=== PATIENT | male | born 1940 | race Caucasian/White ===

== ENCOUNTER 2018-06-25 08:35 | Observation (INO) ==
--- NOTE | 2018-06-25 09:03 | Emergency Department Note ---
Disposition Clinical Impression: Generalized weakness, Frail elderly Hypertension Qualifiers: Hypertension type: essential hypertension Qualified Code(s): I10 - Essential (primary) hypertension Disposition: Admitted As Inpatient Condition: Fair Time of Disposition: 11:02 General Adult HPI - General Chief complaint: ED Weakness Stated complaint: Weakness, back pain Time Seen by Provider: 06/25/18 08:39 Source: patient, family Mode of arrival: EMS Limitations: no limitations Nursing Notes Reviewed: Yes Vital Signs Reviewed: Yes - History of Present Illness HPI Narrative: Mr Marcos is a 78yo male who is brought in via EMS. is at bedside and she gives most of the history. She states he hasn't seen a doctor in over 20yrs aside from going to see a surgeon for a skin cancer removal. She states that he has had weakness for a very long time but over the last week, his weakness has increased severly. He has been having trouble standing up out of his chair and has been having trouble walking around. reports he shuffles his feet when he walks and has had a tremor for about 4-5yrs. He has had urinary freqnecy increasing as well, although he doesn't have difficulty starting urine. He pees multiple times a night. reports that he is very slow to start and has a hard time moving around. Pt Subjective Complaint: weakness - Related Data Home Medications Medication Instructions Recorded Confirmed Naproxen [Naprosyn] 500 mg PO BID 06/25/18 06/25/18 Allergies Allergy/AdvReac Type Severity Reaction Status Date / Time No Known Allergies Allergy Verified 06/25/18 09:08 Constitutional: Denies: fever, chills Eyes: Reports: vision change Cardiovascular: Denies: chest pain, palpitations Respiratory: Denies: cough, dyspnea Gastrointestinal: Reports: constipation. Denies: abdominal pain, nausea, vomiting Genitourinary: Reports: urgency, frequency. Denies: dysuria, hematuria Musculoskeletal: Reports: back pain Integumentary: Denies: lesions Neurological: Reports: weakness. Denies: headache, numbness, paresthesias Endocrine: Reports: fatigue Hematological/Lymphatic: Denies: easy bleeding, easy bruising Physical Exam - General Limitations: no limitations General appearance: alert, in no apparent distress, other (sitting in bed quietly, not interested in conversation, at bedside) - Head Head exam: atraumatic, normocephalic, other (scar from skin cancer removal) - Eye Eye exam: Present: EOMI. Absent: scleral icterus - ENT ENT exam: mucous membranes moist - Neck Neck exam: Present: normal inspection, trachea midline - Chest Chest inspection: Present: normal inspection, symmetric chest wall rise - Respiratory Respiratory exam: Present: normal lung sounds bilaterally. Absent: respiratory distress, wheezes, accessory muscle use - Cardiovascular Cardiovascular exam: Present: regular rate, normal rhythm, +S1, +S2. Absent: rubs, gallop, clicks, JVD - Abdominal Exam Abdominal exam: Present: soft, Non-Tender. Absent: distention, guarding, rebound, rigidity - Extremities Exam Extremities exam: Present: normal inspection, normal capillary refill. Absent: tenderness, pedal edema, joint swelling, calf tenderness - Neurological Exam Neurological exam: Present: alert, oriented X3 - Expanded Neurological Exam Patient oriented to: Present: person, place Speech: Present: fluid speech Cranial nerves: EOM function (II, III, IV, ): Normal, facial sensation (V): Normal, facial palsy (VII): Normal, spinal accessory function (XI): Normal, tongue deviation (XII): Normal Cerebellar function: finger to nose: Abnormal Right, Abnormal Left Motor strength - LUE: 3/5 Motor strength - RUE: 3/5 - Psychiatric Psychiatric exam: Present: flat affect - Skin Skin exam: Present: warm, dry, intact Course Course Narrative: Patient is here for increasing weakness over the last week. states this has been going on for some time but has gotten significantly worse over the last few days. He has had a tremor for quite some time. He also shuffles his feet when he walks. Patient hasn't seen a doctor in 20yrs. Will rule out UTI but this is most likely symptoms of his Parkinsons. - Reevaluation(s) Reevaluation #1: Pt asked for some pain meds. Motrin ordered. Time: 09:30 Reevaluation #2: Patient informed of admission. Time: 11:03 - Consultations Consultation #1: Neurology consulted and call completed. Neuro will see pt once he gets to the floor. Time: 11:03 Vital Signs Temperature 97.5 F L 06/25/18 08:45 Pulse Rate 76 06/25/18 08:45 Respiratory Rate 18 06/25/18 08:45 Blood Pressure 169/97 06/25/18 08:45 O2 Sat by Pulse Oximetry 98 06/25/18 08:45 Temperature 97.5 F L 06/25/18 08:45 Pulse Rate 76 06/25/18 08:45 Respiratory Rate 18 06/25/18 08:45 Blood Pressure 169/97 06/25/18 08:45 O2 Sat by Pulse Oximetry 98 06/25/18 08:45 Medical Decision Making - MDM Narrative Medical decision making narrative: Pt is a 78yo male here for increasing weakness over the last week. Pt is hardly able to get up and walk, he is struggling to urinate and has been having tremor. reports shuffling gait and tremor. He hasn't seen a doctor in over 20 yrs. Workup including labs is negative to this point. CBC, BMP, UA, troponin are all negative. CT abd/pelvis and CXR negative for acute process. Head CT negative for acute process. [facility] accepted admission. Neurology consulted and call is placed. Chest X-Ray 06/25/18 09:24 IMPRESSION: No acute cardiopulmonary disease. D/ / 06/25/2018 10:33:58 Jj Gallagher MD / [facility] Interpreting Provider: Jj Gallagher MD Head CT 06/25/18 09:24 IMPRESSION: No acute intracranial abnormality. Sequela of chronic small vessel ischemic change. D/ / Jj Gallagher MD / Jj Gallagher MD Interpreting Provider: Jj Gallagher MD Abdomen/Pelvis CT 06/25/18 09:49 IMPRESSION: Study is significantly limited due to motion artifact. No CT evidence of acute intra-abdominal process. 4 cm probable right hepatic lobe cyst although incompletely evaluated given motion artifact and lack of IV contrast. Diffuse atherosclerotic disease. Enlargement of the prostate gland and seminal vesicles. D/ / Jd Mathis / Jd Mathis Interpreting Provider: Jd Mathis No acute abnormalities on CTs. Waiting on labs and admission. - Lab Data Lab results reviewed: Yes I reviewed the patient's lab results. Result diagrams: 06/25/18 09:47 06/25/18 09:47 Lab Results 06/25/18 06/25/18 06/25/18 Range/Units 09:05 09:47 09:47 WBC 8.1 (4.3-11.1) K/mcL RBC 4.65 (4.19-5.50) M/mcL Hgb 14.1 (12.9-16.9) g/dL Hct 42.2 (37.5-50.1) % MCV 90.8 (83.0-100.0) fL MCH 30.3 (28.0-33.3) pg MCHC 33.4 (31.6-35.5) g/dL RDW 12.9 (11.5-14.5) % Plt Count 263 (140-400) K/mcL MPV 9.4 (9.4-12.4) fL Immature Gran % 0.5 (0-4) % Seg Neutrophils % 51.0 % Lymphocytes % 32.1 % Monocytes % 11.0 % Eosinophils % 4.8 % Basophils % 0.6 % Neutrophils # 4.1 (1.6-8.9) K/mcL Lymphocytes # 2.6 (0.6-4.6) K/mcL Monocytes # 0.9 (0.0-1.3) K/mcL Eosinophils # 0.4 (0.0-0.6) K/mcL Basophils # 0.1 (0.0-0.2) K/mcL Sodium 141 (136-145) mEq/L Potassium 3.8 (3.5-5.1) mEq/L Chloride 105 (98-107) mEq/L Carbon Dioxide 25 (23-29) mEq/L BUN 24 H (8-23) mg/dL Creatinine 0.88 (0.70-1.30) mg/dL Est GFR ( Amer) > 60 (> 60) Est GFR (Non-Af Amer) > 60 (> 60) BUN/Creatinine Ratio 27 H (6-26) Glucose 95 (70-105) mg/dL Calculated Osmolality 296 (280-300) Calcium 9.9 (8.6-10.3) mg/dL Total Bilirubin 0.6 (0.3-1.0) mg/dL AST 17 (13-39) Units/L ALT 10 (7-52) Units/L Alkaline Phosphatase 48 (34-104) Units/L Troponin I < 0.03 (< 0.04) ng/mL Serum Total Protein 7.0 (6.4-8.9) g/dL Albumin 4.3 (3.5-5.7) g/dL Globulin 2.7 (2.4-3.5) g/dL Albumin/Globulin Ratio 1.6 (1.1-2.2) TSH 1.538 (0.340-5.600) mcIU/mL Urine Color Yellow (Yellow) Urine Clarity Clear (Clear) Urine pH 6.5 (5.0-8.0) pH Units Ur Specific [place] 1.011 (1.010-1.025) Urine Protein Negative (Neg-Trace) mg/dL Urine Glucose (UA) Normal (Normal) mg/dL Urine Ketones Negative (Negative) mg/dL Urine Blood Negative (Negative) Urine Nitrite Negative (Negative) Urine Bilirubin Negative (Negative) Urine Urobilinogen Normal (Normal) mg/dL Ur Leukocyte Esterase Negative (Negative) Ur Culture Indicated? NO (NO) - EKG Data EKG #1 EKG attestation: Yes I reviewed and interpreted this EKG. EKG shows normal: sinus rhythm Rate: normal Rhythm: NSR [place]/QRS: normal When compared to previous EKG there are: previous EKG unavailable Interpretation: no acute changes Attestation Statement - Attestation Attestation: This documentation is done with the assistance of Dragon dictation. Despite efforts made to ensure accuracy, there may be inaccuracies in antique repairer or spelling and typographical errors. I examined this patient and my medical decision-making was reviewed with the Resident Physician. I agree with the documented findings, disposition and treatment plan as described except to the extent set forth below. Patient seen and evaluated on arrival with EMS and Dr. Zuniga, I agree with her evaluation and management plan, supervise care the patient outstay. states patient has not seen a doctor in over 20 years except for having a melanoma surgery on his face about 5 years ago. Increasing difficulty with ambulation he appears to today to have Parkinson's but she says never had a diagnosis. She says she is not able to care for him at home. Patient is not really have any complaints at this time with Benadryl workup on him he will need admission and most likely social service involvement.
[2018-06-25 09:13] LABS: Bilirubin,Urine Negative (Negative); Blood,Urine Negative (Negative); Clarity,Urine Clear (Clear); Color,Urine Yellow (Yellow); Glucose,Urine (UA) Normal (Normal); Ketones,Urine Negative (Negative); Leukocyte Esterase,Urine Negative (Negative); Nitrite,Urine Negative (Negative); PH,Urine 6.5 pH Units (5.0-8.0); Protein,Urine Negative (Neg-Trace); Specific Gravity,Urine 1.011 (1.010-1.025); Urobilinogen,Urine Normal (Normal)
[2018-06-25] MEDS ORDERED: Ibuprofen 400 MG TABLET PO ONE (09:29)
[2018-06-25 09:57] LABS: Basophils # 0.1 K/mcL (0.0-0.2); Basophils % 0.6 %; Eosinophils # 0.4 K/mcL (0.0-0.6); Eosinophils % 4.8 %; Hematocrit 42.2 % (37.5-50.1); Hemoglobin 14.1 g/dL (12.9-16.9); Immature Granulocytes % 0.5 % (0-4); Lymphocytes # 2.6 K/mcL (0.6-4.6); Lymphocytes % 32.1 %; Mean Corpuscular HGB Conc 33.4 g/dL (31.6-35.5); Mean Corpuscular Hemoglobin 30.3 pg (28.0-33.3); Mean Corpuscular Volume 90.8 fL (83.0-100.0); Mean Platelet Volume 9.4 fL (9.4-12.4); Monocytes # 0.9 K/mcL (0.0-1.3); Neutrophils # 4.1 K/mcL (1.6-8.9); Platelet Count 263 K/mcL (140-400); Red Blood Count 4.65 M/mcL (4.19-5.50); Red Cell Distribution Width 12.9 % (11.5-14.5)
[2018-06-25 10:19] LABS: Alanine Aminotransferase 10 Units/L (7-52); Albumin 4.3 g/dL (3.5-5.7); Albumin/Globulin Ratio 1.6 (1.1-2.2); Alkaline Phosphatase 48 Units/L (34-104); Aspartate Amino Transferase 17 Units/L (13-39); BUN/Creatinine Ratio 27 (6-26); Bilirubin,Total 0.6 mg/dL (0.3-1.0); Blood Urea Nitrogen 24 mg/dL (8-23); Calcium 9.9 mg/dL (8.6-10.3); Carbon Dioxide 25 mEq/L (23-29); Chloride 105 mEq/L (98-107); Globulin 2.7 g/dL (2.4-3.5); Glucose 95 mg/dL (70-105); Osmolality,Calculated 296 (280-300); Potassium 3.8 mEq/L (3.5-5.1); Sodium 141 mEq/L (136-145); Troponin I < 0.03 ng/mL (< 0.04); eGFR For Non-African Americans > 60 (> 60)
[2018-06-25 10:32] LABS: Thyroid Stimulating Hormone 1.538 mcIU/mL (0.340-5.600)
[2018-06-25] MEDS ORDERED: Naloxone 0.4 MG/ML INJ IVP PRN (13:56)
--- NOTE | 2018-06-25 14:01 | Internal Med History&Physical ---
Date of Encounter: 06/25/18 Time of Encounter: 13:59 Internal Medicine - H&P: HPI Chief complaint: Increased weakness, stiffness and shuffling gait Admitted From: Home Plans for Post Hospital Care: Home History of present illness: Mr. Marcos is a 78 year old male with no significant PMH presented to [facility] 06/25/2018 with complaints of increased generalized weakness, tremors, shuffling gait and falls. He was placed in observation status for further workup and treatment. Information obtained from chart review, patient report and . Patient defers most questions to his . says patient has been showing symptoms of Parkinson's for the last 5 years or so but has not sought medical attention. Says patient has been more weak with increased falls over the last week or so. She also reports shuffling gait, upper extremity tremors and increased falls. Patient says he is able to walk but he feels like he gets stuck at times. He does complain of some bilateral flank pain on my exam. No fevers or chills. No chest pain or shortness of breath, no dysuria. He does report some urgency and frequency. Denied dysuria Past Med Surg Social Fam HX - Past Medical History Medical history: non-contributory, cancer Additional medical history: skin cancer, macular degeneration right eye. Psychiatric history: no psych history - Past Surgical History Surgical History: no surgical history - Social History Smoking Status: Never smoker Alcohol use: none Drug use: none Internal Medicine - H&P: Meds Naproxen [Naprosyn] 500 mg PO BID 06/25/18 [History] Allergy/AdvReac Type Severity Reaction Status Date / Time No Known Allergies Allergy Verified 06/25/18 09:08 All Systems PM: A 12-system review of systems was performed and is negative for pertinent findings except as documented above in the HPI. - Constitutional Constitutional: as per HPI - EENT Eyes: as per HPI Ears: as per HPI Nose, mouth and throat: as per HPI - Breasts Breasts: as per HPI - Cardiovascular Cardiovascular ROS IM: as per HPI - Respiratory Respiratory: as per HPI - Gastrointestinal Gastrointestinal: as per HPI - Genitourinary Genitourinary ROS male: as per HPI - Musculoskeletal Musculoskeletal ROS IM: as per HPI - Integumentary Integumentary IM: as per HPI - Neurological Neurological ROS: as per HPI - Psychiatric Psychiatric: as per HPI - Constitutional Vitals: Temp Pulse Resp BP Pulse Ox 98.0 F 78 16 169/88 98 06/25/18 13:31 06/25/18 13:31 06/25/18 13:31 06/25/18 13:31 06/25/18 13:31 General appearance: Present: A&O X 3, pleasant, no acute distress Exam: . - Head Head exam: Present: atraumatic, normocephalic - Eye Eye exam: Present: PERRL, conjuntiva pink, sclera anicteric Pupils: Present: PERRL - Neck Neck exam general surgery: Present: supple, trachea midline. Absent: lymphadenopathy - Respiratory Respiratory exam: Present: CTAB. Absent: accessory muscle use, rales, rhonchi, wheezes - Cardiovascular Cardiovascular exam: Present: RRR, +S1, +S2. Absent: diastolic murmur, gallop, rubs, systolic murmur - GI/Abdominal GI/Abdominal exam: Present: normal bowel sounds, soft, no peritoneal signs. Absent: distended, tenderness - Extremities Exam Extremities exam: Present: warm, radial pulses palpable and symmetrical. Absent: calf tenderness, cyanotic, pedal edema - Neurological Exam Neurological exam: Present: CN II-XII intact, oriented X3, no focal deficits. Absent: pronater drift, facial droop, speech deficit Additional comments: Generalized rigidity and whole-body stiffness. Fine tremors to bilateral hands noted - Skin Skin exam: Present: dry, intact Internal Med - H&P Results - Labs CBC & Chem 7: 06/25/18 09:47 06/25/18 09:47 Labs: Short CBC 06/25/18 Range/Units 09:47 WBC 8.1 (4.3-11.1) K/mcL Hgb 14.1 (12.9-16.9) g/dL Hct 42.2 (37.5-50.1) % Plt Count 263 (140-400) K/mcL Neutrophils # 4.1 (1.6-8.9) K/mcL BMP 06/25/18 09:47 Sodium 141 Potassium 3.8 Chloride 105 Carbon Dioxide 25 BUN 24 H Creatinine 0.88 Glucose 95 Calcium 9.9 Cardiac Enzymes 06/25/18 Range/Units 09:47 Troponin I < 0.03 (< 0.04) ng/mL Liver Function 06/25/18 Range/Units 09:47 Total Bilirubin 0.6 (0.3-1.0) mg/dL AST 17 (13-39) Units/L ALT 10 (7-52) Units/L Alkaline Phosphatase 48 (34-104) Units/L Albumin 4.3 (3.5-5.7) g/dL Urine 06/25/18 Range/Units 09:05 Urine Color Yellow (Yellow) Urine Clarity Clear (Clear) Urine pH 6.5 (5.0-8.0) pH Units Ur Specific [place] 1.011 (1.010-1.025) Urine Protein Negative (Neg-Trace) mg/dL Urine Glucose (UA) Normal (Normal) mg/dL - Impressions ITS Impressions Chest X-Ray 06/25/18 09:24 IMPRESSION: No acute cardiopulmonary disease. D/ / 06/25/2018 10:33:58 Jj Gallagher MD / [facility] Interpreting Provider: Jj Gallagher MD Head CT 06/25/18 09:24 IMPRESSION: No acute intracranial abnormality. Sequela of chronic small vessel ischemic change. D/ / 06/25/2018 11:17:59 Jj Gallagher MD / [facility] Interpreting Provider: Jj Gallagher MD Abdomen/Pelvis CT 06/25/18 09:49 IMPRESSION: Study is significantly limited due to motion artifact. No CT evidence of acute intra-abdominal process. 4 cm probable right hepatic lobe cyst although incompletely evaluated given motion artifact and lack of IV contrast. Diffuse atherosclerotic disease. Enlargement of the prostate gland and seminal vesicles. D/ / Jd Mathis / Jd Mathis Interpreting Provider: Jd Mathis - Assessment and plan (1) Generalized weakness Current Visit: Yes Status: Acute Assessment and plan: presented with increased generalized weakness with associated rigidity, tremors and shuffling gait. Concerning for Parkinson. Head CT nonacute. Neurology consult (2) BPH (benign prostatic hyperplasia) Current Visit: Yes Status: Acute Assessment and plan: Symptomatic with frequency and urgency. ABD CT with enlarged prostate. Start Flomax Qualifiers: Lower urinary tract symptom detail: urinary frequency Qualified Code(s): N40.1 - Benign prostatic hyperplasia with lower urinary tract symptoms; R35.0 - Frequency of micturition (3) Constipation Current Visit: Yes Status: Acute Assessment and plan: per patient reported hx. Start Miralax Qualifiers: Constipation type: unspecified constipation type Qualified Code(s): K59.00 - Constipation, unspecified (4) DVT prophylaxis Current Visit: Yes Status: Acute Assessment and plan: lovenox - Time Spent With Patient Total time spent is greater than 50% in coordination of care (as documented) at patient's floor/unit and/or counseling patient:
[2018-06-25] MEDS: traMADol 50 MG TABLET PO PRN (14:36)
[2018-06-25] MEDS: Nystatin POWDER 30 GM BOTTLE TP SCH ×2 (14:53→21:42)
[2018-06-25] MEDS: *HR* OxyCODONE Immed Rel 5 MG TABLET PO PRN ×2 (16:21→22:43)
--- NOTE | 2018-06-25 16:36 | Neurology - Consult Note ---
Date of Encounter: 06/25/18 Time of Encounter: 16:32 Assessment and Plan (1) Parkinson's disease Current Visit: Yes Status: Acute Patient does have the cardinal features of Parkinson's disease which include resting tremor, akinesia, rigidity, and postural instability. I will start him on carbidopa/levodopa 25/100. I recommend have one dose this evening and then start tomorrow morning with twice a day dosing. He also has back pain which I presume was more than likely due to mechanical factors however CT scan of the lumbar spine is pending. Further recommendations will be made pending the response to the carbidopa/levodopa. I anticipate he will need ongoing follow-up after discharge in my office as an outpatient. History of Present Illness HPI: Mr. Marcos is a 78 year old male who was seen for neurologic consultation at the request of the hospitalist secondary to suspicion of Parkinson's disease. Multiple family members are present during the assessment who helps to corroborate details. However I am referring Mr. Marcos began to experience symptoms of tremor of the right upper extremity as well as resting tremor of the left leg about 4 years or so ago. Over time the tremor has become more significant, and he has developed a slow shuffling gait. He had one fall several days or so ago. He denies headache denies confusion. Has any memory trouble. He does however complain of back pain is been evolving over recent times as well. He denies any paresthesias of the lower extremities. CT scan of the lumbar spine is yet pending. I did personally review the CAT scan of the brain which does reveal generalized atrophy. No evidence of acute infarct is present. No hemorrhagic process or neoplasm is present. No evidence of hydrocephalus present. Mr. Marcos admits that he is "not a Dr. person" which is why he has not gotten assessed and started on medication for this previously. His family is present they are very attentive and very pleasant. Past Med Surg Social Fam HX - Past Medical History Medical history: non-contributory, cancer Additional medical history: skin cancer, macular degeneration right eye. Psychiatric history: no psych history - Past Surgical History Surgical History: no surgical history - Social History Smoking Status: Never smoker Smokeless Tobacco Status: No Alcohol use: none Drug use: none - Family History Mother Adopted: No Medications and Allergies Naproxen [Naprosyn] 500 mg PO BID 06/25/18 [History] Allergy/AdvReac Type Severity Reaction Status Date / Time No Known Allergies Allergy Verified 06/25/18 09:08 All Systems: The remainder of the systems were reviewed and are negative Review of Systems: The balance of the systems review is negative. Physical Examination - Vital Signs Vital Signs: Initial Vital Signs Temp Pulse Resp BP Pulse Ox 97.5 F L 76 18 169/97 98 06/25/18 08:45 06/25/18 08:45 06/25/18 08:45 06/25/18 08:45 06/25/18 08:45 - Exam Exam: General Examination: *CONSTITUTIONAL: Very frail and bradykinetic. *GENERAL APPEARANCE OF PATIENT appears healthy and well groomed *EYES: pupils equal, round, reactive to light and accommodation, conjunctiva clear without masses or ulcerations, fundi normal. *CARDIOVASCULAR no peripheral edema, distal temperature normal, dorsalis pedis pulses normal. Refer to vital signs Musculoskeletal: *GAIT AND STATION slow shuffling gait with normal Romberg testing, he does have a stooping type posture. He has decreased arm swing bilaterally. He is unstable without assistance *ASSESSMENT OF MUSCLE STRENGTH IN THE UPPER AND LOWER EXTREMITIES deltoid, bicep, tricep, student worker strength, hip flexors ,anterior tibialis, dorsoflexion of the foot normal. *MUSCLE TONE IN THE UPPER AND LOWER EXTREMITIES normal. He does have resting tremor of the right upper extremity he does have decreased amplitude of repetitive alternating movements with the hands or with foot tapping. Neurological: *ORIENTATION to time and place *RECURRENT AND REMOTE MEMORY intact *ATTENTION AND CONCENTRATION are normal *LANGUAGE FUNCTION no significant aphasia or dysarthia was noted. *FUND OF KNOWLEDGE aware of current events, past history, vocabulary *MENTAL attention span and concentration normal. *CN II optic fundi were normal, no papilledema noted. *CN III,IV, PERRLA extraocular eye movements were full, no nystagmus and no ptosis noted. *CN V shows normal sensation and jaw opens symmetrically. *CN VII shows normal facial movement symmetrically, upper and lower bilaterally. *CN VIII shows no significant hearing loss on examination in the office. *CN IX,,X palate elevated symmetrically and normal gag reflex was noted. *CN XI normal strength in the sternocleidomastoid muscles, symmetrical shoulder shrugging. *CN XII tongue protruded in the midline, with normal strength and movement. *SENSORY EXAMINATION pinprick sensation intact, and light touch(vibration sense). *REFLEXES: deep tendon reflexes were normal and symmetrical , grade 2/4 diffusely, no pathological reflexes were noted. *CEREBELLAR TESTING normal finger to nose, heel/knee/guerra. *PAIN LEVEL 6-7/10 of the low back. Results - Laboratory Findings CBC and BMP: 06/25/18 09:47 06/25/18 09:47 Abnormal lab findings: Abnormal lab results BUN 24 mg/dL (8-23) H 06/25/18 09:47 BUN/Creatinine Ratio 27 (6-26) H 06/25/18 09:47 Consult Discharge Plan - Plan Referrals: Kiki To OYSTER PICKER [Primary Care Provider] -
[2018-06-25] MEDS: Carbidopa/Levodopa 25/100 TABLET PO SCH (17:53)
[2018-06-26] MEDS: traMADol 50 MG TABLET PO PRN ×2 (01:23→18:47)
[2018-06-26 04:20] LABS: Hematocrit 39.5 % (37.5-50.1); Hemoglobin 13.4 g/dL (12.9-16.9); Mean Corpuscular HGB Conc 33.9 g/dL (31.6-35.5); Mean Corpuscular Hemoglobin 30.7 pg (28.0-33.3); Mean Corpuscular Volume 90.6 fL (83.0-100.0); Mean Platelet Volume 9.8 fL (9.4-12.4); Platelet Count 260 K/mcL (140-400); Red Blood Count 4.36 M/mcL (4.19-5.50); Red Cell Distribution Width 13.1 % (11.5-14.5)
[2018-06-26 04:39] LABS: BUN/Creatinine Ratio 29 (6-26); Blood Urea Nitrogen 24 mg/dL (8-23); Calcium 9.5 mg/dL (8.6-10.3); Carbon Dioxide 25 mEq/L (23-29); Chloride 103 mEq/L (98-107); Glucose 123 mg/dL (70-105); Osmolality,Calculated 293 (280-300); Potassium 3.8 mEq/L (3.5-5.1); Sodium 139 mEq/L (136-145); eGFR For Non-African Americans > 60 (> 60)
[2018-06-26] MEDS: *HR* OxyCODONE Immed Rel 5 MG TABLET PO PRN ×4 (04:47→22:45)
[2018-06-26] MEDS: Carbidopa/Levodopa 25/100 TABLET PO SCH ×3 (08:24→21:10)
[2018-06-26] MEDS: Nystatin POWDER 30 GM BOTTLE TP SCH ×3 (08:25→21:10)
[2018-06-26] MEDS ORDERED: Ondansetron ODT 4 MG TAB.RAPDIS SL PRN (13:22)
--- NOTE | 2018-06-26 14:53 | Internal Med Progress Note ---
Hospitalist Progress Note - Encounter Date of Encounter: 06/26/18 Time of Encounter: 14:51 - Subjective Interval History: Seen and examined at bedside. He seems restless and somewhat agitated on exam. MOBILE NURSE at bedside and said patient has been up to the chair multiple times today. Patient is complaining of persistent lower back pain that radiates to his legs. No bladder or bowel incontinence. - Exam Vitals: Temp Pulse Resp BP Pulse Ox 97.8 F 93 16 125/67 99 06/26/18 11:42 06/26/18 11:42 06/26/18 11:42 06/26/18 11:42 06/26/18 11:42 Exam: - Head Head exam: Present: atraumatic, normocephalic - Eye Eye exam: Present: PERRL, conjuntiva pink, sclera anicteric Pupils: Present: PERRL - Neck Neck exam general surgery: Present: supple, trachea midline. Absent: lymphadenopathy - Respiratory Respiratory exam: Present: CTAB. Absent: accessory muscle use, rales, rhonchi, wheezes - Cardiovascular Cardiovascular exam: Present: RRR, +S1, +S2. Absent: diastolic murmur, gallop, rubs, systolic murmur - GI/Abdominal GI/Abdominal exam: Present: normal bowel sounds, soft, no peritoneal signs. Absent: distended, tenderness - Extremities Exam Extremities exam: Present: warm, radial pulses palpable and symmetrical. Absent: calf tenderness, cyanotic, pedal edema - Neurological Exam Neurological exam: Present: CN II-XII intact, oriented X3, no focal deficits. Absent: pronater drift, facial droop, speech deficit Additional comments: Generalized rigidity and whole-body stiffness. Fine tremors to bilateral hands noted - Assessment and Plan (1) Parkinson's disease Current Visit: Yes Status: Acute Assessment and Plan: new diagnosis. Presented with generalized weakness, rigidity and resting tremors. Evaluated by neurology who suspects Parkinson's disease. Carbidopa/levodopa started. Further recommendations will be made depending on the patient's response to carbidopa/levodopa. Neurology following. (2) Back pain Current Visit: Yes Status: Acute Assessment and Plan: sounds acute on chronic. Patient denied injury/trauma however patient's reports multiple recent falls. He is injury or trauma on exam. Lumbar x-ray unremarkable. Still with significant pain on 06/26 exam requiring increase in pain medication. Lumbar MRI pending. (3) BPH (benign prostatic hyperplasia) Current Visit: Yes Status: Acute Assessment and Plan: Symptomatic with frequency and urgency. ABD CT with enlarged prostate. Start Flomax (4) Constipation Current Visit: Yes Status: Acute Assessment and Plan: per patient reported hx. Start Miralax - Time Spent with Patient Total time spent is greater than 50% in coordination of care (as documented) at patient's floor/unit and/or counseling patient: Internal Medicine: Result - Labs CBC & Chem 7: 06/26/18 03:47 06/26/18 03:47 Labs: Short CBC 06/26/18 Range/Units 03:47 WBC 8.4 (4.3-11.1) K/mcL Hgb 13.4 (12.9-16.9) g/dL Hct 39.5 (37.5-50.1) % Plt Count 260 (140-400) K/mcL BMP 06/26/18 03:47 Sodium 139 Potassium 3.8 Chloride 103 Carbon Dioxide 25 BUN 24 H Creatinine 0.83 Glucose 123 H Calcium 9.5 - Impressions Impressions Lumbar Spine X-Ray 06/25/18 16:08 IMPRESSION: Mild multilevel degenerative changes without acute osseous abnormality. D/ / Alec Lanier MD / Alec Lanier MD Interpreting Provider: Alec Lanier MD Consult Discharge Plan - Plan Referrals: Kiki To, [employer] [Primary Care Provider] - (3) BPH (benign prostatic hyperplasia) Qualifiers: Lower urinary tract symptom detail: urinary frequency Qualified Code(s): N40.1 - Benign prostatic hyperplasia with lower urinary tract symptoms; R35.0 - Frequency of micturition (4) Constipation Qualifiers: Constipation type: unspecified constipation type Qualified Code(s): K59.00 - Constipation, unspecified
[2018-06-26] MEDS ORDERED: *HR* OxyCODONE Immed Rel 5 MG TABLET PO SCH (16:00)
[2018-06-26] MEDS ORDERED: OXYCODONE Oral CONC 10 MG/0.5 ML ORAL.SYG SL ONE (20:43)
[2018-06-27] MEDS: *HR* Enoxaparin 40 MG/0.4 ML SYRINGE SQ SCH (05:04)
[2018-06-27 05:41] LABS: Hematocrit 39.3 % (37.5-50.1); Hemoglobin 13.3 g/dL (12.9-16.9); Mean Corpuscular HGB Conc 33.8 g/dL (31.6-35.5); Mean Corpuscular Hemoglobin 30.3 pg (28.0-33.3); Mean Corpuscular Volume 89.5 fL (83.0-100.0); Mean Platelet Volume 10.1 fL (9.4-12.4); Platelet Count 281 K/mcL (140-400); Red Blood Count 4.39 M/mcL (4.19-5.50); Red Cell Distribution Width 12.9 % (11.5-14.5)
[2018-06-27 06:03] LABS: BUN/Creatinine Ratio 30 (6-26); Blood Urea Nitrogen 28 mg/dL (8-23); Calcium 10.1 mg/dL (8.6-10.3); Carbon Dioxide 20 mEq/L (23-29); Chloride 101 mEq/L (98-107); Glucose 104 mg/dL (70-105); Osmolality,Calculated 286 (280-300); Potassium 3.8 mEq/L (3.5-5.1); Sodium 135 mEq/L (136-145); eGFR For Non-African Americans > 60 (> 60)
[2018-06-27] MEDS: *HR* OxyCODONE Immed Rel 5 MG TABLET PO PRN (08:47)
[2018-06-27] MEDS: Carbidopa/Levodopa 25/100 TABLET PO SCH ×2 (08:47→15:58)
[2018-06-27] MEDS: Nystatin POWDER 30 GM BOTTLE TP SCH ×3 (08:48→19:58)
[2018-06-27] MEDS: traMADol 50 MG TABLET PO PRN ×2 (13:07→19:58)
--- NOTE | 2018-06-27 14:14 | Internal Med Progress Note ---
<Radhames Quiroga P - Last Filed: 06/27/18 14:21> Hospitalist Progress Note - Encounter Date of Encounter: 06/27/18 Time of Encounter: 13:00 - Subjective Interval History: 78 years old male presented to [facility] ED for increased weakness, shuffling gaits and tremors and falls. According to his he has symptoms for a few years b ut has not started any medication. Today during our bedside visit, he was sleeping. We could not talk with the patient and talked with his . The patient has resting tremors and improving a little bit since admission. His vitals are blood pressure 123/69, temperature 99 F, saturation 95%. We have consulted Neurologist today and we appreciate the recommendation. We are waiting MRI lumbar spine , we appreciate recommendation from PT and OT. The patient does not want to go to the group home facility, but wants to go home with regular follow-up with new primary care provider. We will discharge him in 1-2 days - Exam Vitals: Temp Pulse Resp BP Pulse Ox 99.0 F 95 18 123/69 95 06/27/18 10:57 06/27/18 10:57 06/27/18 10:57 06/27/18 10:57 06/27/18 10:57 Exam: - Head Head exam: Present: atraumatic, normocephalic - Eye Eye exam: Present: PERRL, conjuntiva pink, sclera anicteric Pupils: Present: PERRL - Neck Neck exam general surgery: Present: supple, trachea midline. Absent: lymphadenopathy - Respiratory Respiratory exam: Present: CTAB. Absent: accessory muscle use, rales, rhonchi, wheezes - Cardiovascular Cardiovascular exam: Present: RRR, +S1, +S2. Absent: diastolic murmur, gallop, rubs, systolic murmur - GI/Abdominal GI/Abdominal exam: Present: normal bowel sounds, soft, no peritoneal signs. Absent: distended, tenderness - Extremities Exam Extremities exam: Present: warm, radial pulses palpable and symmetrical. Absent: calf tenderness, cyanotic, pedal edema - Neurological Exam Neurological exam: Present: CN II-XII intact, oriented X3, no focal deficits. Absent: pronater drift, facial droop, speech deficit Additional comments: Generalized rigidity and whole-body stiffness. Fine tremors to bilateral hands noted - Assessment and Plan (1) Parkinson disease Current Visit: Yes Status: Acute Assessment and Plan: The patient has history of resting tremor, rigidity, postural instability. The patient is are suggestive of Parkinson disease. Neurology team has been consulted. They started carbidopa/levodopa 25/100 twice daily. We will monitor the symptoms . (2) Generalized weakness Current Visit: Yes Status: Acute Assessment and Plan: presented with increased generalized weakness with associated rigidity, tremors and shuffling gait. Head CT normal . Neurology consult (3) Low back pain Current Visit: Yes Status: Acute Assessment and Plan: Xray lumbar spine :Mild multilevel degenerative changes without acute osseous abnormality. We have consulted PT and OT, waiting MRI lumbar spine - Time Spent with Patient Total time spent is greater than 50% in coordination of care (as documented) at patient's floor/unit and/or counseling patient: Internal Medicine: Result - Labs CBC & Chem 7: 06/27/18 05:03 06/27/18 05:03 Labs: Short CBC 06/27/18 Range/Units 05:03 WBC 9.9 (4.3-11.1) K/mcL Hgb 13.3 (12.9-16.9) g/dL Hct 39.3 (37.5-50.1) % Plt Count 281 (140-400) K/mcL BMP 06/27/18 05:03 Sodium 135 L Potassium 3.8 Chloride 101 Carbon Dioxide 20 L BUN 28 H Creatinine 0.92 Glucose 104 Calcium 10.1 Consult Discharge Plan - Plan Referrals: Kiki To, [employer] [facility]PERATOR [Primary Care Provider] - (Appointment has been requested. Our offices will call you with an appointment time and date) <Mendez Ruby - Last Filed: 06/27/18 14:47> Hospitalist Progress Note - Encounter Date of Encounter: 06/27/18 - Exam Vitals: Temp Pulse Resp BP Pulse Ox 99.0 F 95 18 123/69 95 06/27/18 10:57 06/27/18 10:57 06/27/18 10:57 06/27/18 10:57 06/27/18 10:57 - Assessment and Plan (1) BPH (benign prostatic hyperplasia) Current Visit: Yes Status: Acute (2) Constipation Current Visit: Yes Status: Acute (3) Parkinson's disease Current Visit: Yes Status: Acute (4) Back pain Current Visit: Yes Status: Acute - Time Spent with Patient Total time spent is greater than 50% in coordination of care (as documented) at patient's floor/unit and/or counseling patient: Internal Medicine: Result - Labs CBC & Chem 7: 06/27/18 05:03 06/27/18 05:03 Labs: Short CBC 06/27/18 Range/Units 05:03 WBC 9.9 (4.3-11.1) K/mcL Hgb 13.3 (12.9-16.9) g/dL Hct 39.3 (37.5-50.1) % Plt Count 281 (140-400) K/mcL BMP 06/27/18 05:03 Sodium 135 L Potassium 3.8 Chloride 101 Carbon Dioxide 20 L BUN 28 H Creatinine 0.92 Glucose 104 Calcium 10.1 - Attending Attestation I have performed a face- to face examination of this patient and participated in formulation of raymundo components of Assessment and plan with the Resident. Briefly this is a 78-year-old male with a new diagnosis of Parkinson's disease who was just been started on Sinemet and now we are up to 3 times a day Sinemet dosing. Neurology is following for symptom improvement. Occupational therapy and physical therapy are recommending group home facility which is being refused by the family. We will at the very least need to set up home health care at the time of discharge. He also has acute on chronic back pain and MRI of his lower back is pending at this time. Examination is consistent with a flat facies and diffuse increased muscle tone and muscular rigidity consistent with Parkinson's. Rest of the assessment and plan as per resident documentation <Mendez Ruby - Last Filed: 06/27/18 14:47> (1) BPH (benign prostatic hyperplasia) Qualifiers: Lower urinary tract symptom detail: urinary frequency Qualified Code(s): N40.1 - Benign prostatic hyperplasia with lower urinary tract symptoms; R35.0 - Frequency of micturition (2) Constipation Qualifiers: Constipation type: unspecified constipation type Qualified Code(s): K59.00 - Constipation, unspecified
--- NOTE | 2018-06-27 17:41 | Neurology Progress Note ---
Date of Encounter: 06/27/18 Time of Encounter: 17:38 Assessment and Plan (1) Parkinson's disease Current Visit: Yes Status: Acute Idiopathic Parkinson's disease is increasingly difficult to manage in older individuals. Frequently they are not able to tolerate the carbidopa/levodopa and it causes agitation and confusion. Such is the case here. In addition his back pain is likely due to chronic lumbar radiculopathies which will not be amenable to surgery. He will likely need long-term therapy for pain management perhaps with injections or oral medication therapy. His intends to take him home and I am concerned that he will be increasingly difficult to manage. If he is ultimately not able to tolerate the Sinemet then his rigidity will p ersist and she will have a hard time with his daily care. The medication therapy may also cause him to be agitated and confused. However for now I will hold the Sinemet until his symptoms of confusion subside. I will consider restarting it at 1 pill daily to see whether he tolerates it. I will reevaluate him tomorrow. Subjective Interval history: The chart was reviewed, the patient was seen and examined. His is with him at the bedside. Patient is sleeping at the time. Apparently he has been confused and agitated since starting the Sinemet. This is an unfortunate side effect of this medication. 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 This is likely the cause of his back pain. Objective - Constitutional Vitals: Temp Pulse Resp BP Pulse Ox 98.5 F 113 16 156/79 97 06/27/18 16:14 06/27/18 16:14 06/27/18 16:14 06/27/18 16:14 06/27/18 16:14 - Neurological Exam Additional comments: There has been no change in my neurologic examination from my initial assessment. Results - Laboratory Findings CBC and BMP: 06/27/18 05:03 06/27/18 05:03 Abnormal lab findings: Abnormal lab results Sodium 135 mEq/L (136-145) L 06/27/18 05:03 Carbon Dioxide 20 mEq/L (23-29) L 06/27/18 05:03 BUN 28 mg/dL (8-23) H 06/27/18 05:03 BUN/Creatinine Ratio 30 (6-26) H 06/27/18 05:03 Consult Discharge Plan - Plan Referrals: Kiki To CNP [Primary Care Provider] - (Appointment has been requested. Our offices will call you with an appointment time and date)
[2018-06-27] MEDS ORDERED: Acetaminophen 325 MG TABLET PO ONE (22:30)
[2018-06-28] MEDS ORDERED: traMADol 50 MG TABLET PO ONE (00:45)
[2018-06-28] MEDS ORDERED: *HR* OxyCODONE Immed Rel 5 MG TABLET PO ONE ×2 (02:08→14:39)
--- NOTE | 2018-06-28 03:23 | Event Note ---
Date of Encounter: 06/28/18 Time of Encounter: 02:17 Notified by nurse of patient reporting chest pain that feels like muscle pain. Assessed patient at bedside. EKG sinus tachycardia, though there was significant artifact as staff unable to make patient lay still while obtaining EKG. Had similar episode on previous shift with EKG and troponin ordered. Will repeat 2 additional troponins.
[2018-06-28 04:32] LABS: Hematocrit 35.5 % (37.5-50.1); Hemoglobin 12.1 g/dL (12.9-16.9); Mean Corpuscular HGB Conc 34.1 g/dL (31.6-35.5); Mean Corpuscular Hemoglobin 30.6 pg (28.0-33.3); Mean Corpuscular Volume 89.6 fL (83.0-100.0); Platelet Count 256 K/mcL (140-400); Red Blood Count 3.96 M/mcL (4.19-5.50); Red Cell Distribution Width 13.2 % (11.5-14.5)
[2018-06-28 04:49] LABS: BUN/Creatinine Ratio 38 (6-26); Blood Urea Nitrogen 35 mg/dL (8-23); Calcium 9.4 mg/dL (8.6-10.3); Carbon Dioxide 24 mEq/L (23-29); Chloride 102 mEq/L (98-107); Glucose 101 mg/dL (70-105); Osmolality,Calculated 292 (280-300); Sodium 137 mEq/L (136-145); eGFR For Non-African Americans > 60 (> 60)
[2018-06-28] MEDS: *HR* Enoxaparin 40 MG/0.4 ML SYRINGE SQ SCH (04:56)
[2018-06-28] MEDS: traMADol 50 MG TABLET PO PRN ×2 (07:33→22:36)
[2018-06-28] MEDS: Ketorolac 30 MG/ML VIAL IVP SCH ×3 (09:50→18:23)
[2018-06-28] MEDS: Nystatin POWDER 30 GM BOTTLE TP SCH ×3 (10:44→22:04)
[2018-06-28] MEDS ORDERED: MOM Conc 10 ML UD.LIQ PO ONE (11:06)
--- NOTE | 2018-06-28 11:17 | Internal Med Progress Note ---
<Radhames Quiroga P - Last Filed: 06/28/18 12:59> Hospitalist Progress Note - Encounter Date of Encounter: 06/28/18 Time of Encounter: 09:30 - Subjective Interval History: Today is third day of admission .He is 78 years old male presented to [facility] ED for increased weakness, shuffling gaits and tremors and falls. According to his he has had symptoms for a few years but has not started any medication. During my bedside visit today, the patient was walking around with the help of walker, he stated that he could not sleep well yesterday and looks a little bit restless and try to walk around. His vitals are temperature 97.9, pulse 109 regular, blood pressure 148/81 . Recent labs : Sodium 137 , potassium 4.0 , creatinine 0.91, white cell count 8.0 , troponin 0.03 , urinalysis negative for infection.MRI report ;Multilevel degenerative changes of the lumbar spine, most prominent at L4-5, as detailed above. Orthopedic spine doctor has been consulted today. Neurologic team is on board. - Exam Vitals: Temp Pulse Resp BP Pulse Ox 97.9 F 109 16 148/81 97 06/28/18 06:52 06/28/18 06:52 06/28/18 06:52 06/28/18 06:52 06/28/18 06:52 Exam: - Head Head exam: Present: atraumatic, normocephalic - Eye Eye exam: Present: PERRL, conjuntiva pink, sclera anicteric Pupils: Present: PERRL - Neck Neck exam general surgery: Present: supple, trachea midline. Absent: lymphadenopathy - Respiratory Respiratory exam: Present: CTAB. Absent: accessory muscle use, rales, rhonchi, wheezes - Cardiovascular Cardiovascular exam: Present: RRR, +S1, +S2. Absent: diastolic murmur, gallop, rubs, systolic murmur - GI/Abdominal GI/Abdominal exam: Present: normal bowel sounds, soft, no peritoneal signs. Absent: distended, tenderness - Extremities Exam Extremities exam: Present: warm, radial pulses palpable and symmetrical. Absent: calf tenderness, cyanotic, pedal edema - Neurological Exam Neurological exam: Present: CN II-XII intact, oriented X2, no focal deficits. Absent: pronater drift, facial droop, speech deficit Additional comments: Lowback : tenderness at lower lumbar spine and paravertebral muscle. Generalized rigidity and whole-body stiffness. Fine resting tremors to marjorie ateral hands noted - Assessment and Plan (1) Parkinson disease Current Visit: Yes Status: Acute Assessment and Plan: The patient has history of resting tremor, rigidity, postural instability. The patient is are suggestive of Parkinson disease. Neurology team has been consulted. They started carbidopa/levodopa 25/100 twice daily, but patient could not tolerate the dose,so gradually increase the dose from 1tab OD as per neuro recommendation. We will monitor the symptoms . (2) Generalized weakness Current Visit: Yes Status: Acute Assessment and Plan: presented with increased generalized weakness with associated rigidity, tremors and shuffling gait. Head CT normal . MRI Lspine:Multilevel degenerative changes of the lumbar spine, most prominent at L4-5, as detailed above. We have consulted orthopedic doctor..PT and OT on board. (3) Low back pain Current Visit: Yes Status: Acute Assessment and Plan: He has low back pain with radiculopathy. MRI : L spine Multilevel degenerative changes of the lumbar spine, most prominent at L4-5, Ortho spine has been consulted . PT and OT on board , pain management continue . (4) DVT prophylaxis Current Visit: Yes Status: Acute Assessment and Plan: On lovenox 40 SQ - Time Spent with Patient Total time spent is greater than 50% in coordination of care (as documented) at patient's floor/unit and/or counseling patient: Internal Medicine: Result - Labs CBC & Chem 7: 06/28/18 03:33 06/28/18 03:33 Labs: Short CBC 06/28/18 Range/Units 03:33 WBC 8.0 (4.3-11.1) K/mcL Hgb 12.1 L (12.9-16.9) g/dL Hct 35.5 L (37.5-50.1) % Plt Count 256 (140-400) K/mcL BMP 06/28/18 03:33 Sodium 137 Potassium 4.0 Chloride 102 Carbon Dioxide 24 BUN 35 H Creatinine 0.91 Glucose 101 Calcium 9.4 Cardiac Enzymes 06/27/18 06/28/18 06/28/18 Range/Units 16:48 03:33 09:49 Troponin I 0.03 0.04 H* < 0.03 (< 0.04) ng/mL - Impressions Impressions Lumbar Spine MRI 06/26/18 14:55 IMPRESSION: 1. Multilevel degenerative changes of the lumbar spine, most prominent at L4-5, as detailed above. 2. Grade 1 retrolisthesis of L1 relative to L2. Presumed degenerative endplate edema at L1-L2 on the left. D/ / 06/27/2018 14:48:38 Ethan Xiao MD / abhijit Interpreting Provider: Ethan Xiao MD Consult Discharge Plan - Plan Referrals: Kiki To PACU RN [Primary Care Provider] - 07/04/18 8:30 am () <Mendez Ruby - Last Filed: 06/29/18 09:46> Hospitalist Progress Note - Encounter Date of Encounter: 06/29/18 - Exam Vitals: Temp Pulse Resp BP Pulse Ox 97.6 F 104 14 162/79 100 06/29/18 07:00 06/29/18 07:00 06/29/18 07:00 06/29/18 07:00 06/29/18 07:00 - Assessment and Plan (1) BPH (benign prostatic hyperplasia) Current Visit: Yes Status: Acute (2) Constipation Current Visit: Yes Status: Acute (3) Parkinson's disease Current Visit: Yes Status: Acute (4) Back pain Current Visit: Yes Status: Acute - Time Spent with Patient Total time spent is greater than 50% in coordination of care (as documented) at patient's floor/unit and/or counseling patient: Internal Medicine: Result - Labs CBC & Chem 7: 06/29/18 04:14 06/29/18 04:14 Labs: Short CBC 06/29/18 Range/Units 04:14 WBC 9.4 (4.3-11.1) K/mcL Hgb 13.3 (12.9-16.9) g/dL Hct 40.5 (37.5-50.1) % Plt Count 317 (140-400) K/mcL BMP 06/29/18 04:14 Sodium 136 Potassium 3.5 Chloride 98 Carbon Dioxide 24 BUN 58 H Creatinine 1.19 Glucose 116 H Calcium 10.4 H Cardiac Enzymes 06/28/18 Range/Units 09:49 Troponin I < 0.03 (< 0.04) ng/mL - Impressions Impressions Lumbar Spine MRI 06/26/18 14:55 IMPRESSION: 1. Multilevel degenerative changes of the lumbar spine, most prominent at L4-5, as detailed above. 2. Grade 1 retrolisthesis of L1 relative to L2. Presumed degenerative endplate edema at L1-L2 on the left. D/ / 06/27/2018 14:48:38 Ethan Xiao MD / abhijit Interpreting Provider: Ethan Xiao MD - Attending Attestation I have performed a face- to face examination of this patient and participated in formulation of raymundo components of Assessment and plan with the Resident. Events from last night reviewed. Patient had better evening last night after his Sinemet was held by neurology. There was also concern for ST changes on telemetry monitoring. Cardiac enzymes were checked and they were normal although last one was barely elevated at 0.04. Patient has been denying any chest pain or chest pressure-type of symptoms. He is not short of breath. This morning he is much more awake and alert and seen ambulating in the toro with the a walker. He still complains of a lot of pain in the lower back region. His MRI has been reviewed and shows severe L4-L5 degenerative disc disease including central disc protrusion. I have started him on Toradol cautiously keeping his renal function in mind. Physical therapy will continue to see him. We will also consult orthopedics for intervention although I doubt he would be a candidate for surgical intervention at this point. On examination his gait is shuffling, he does have increased muscle tone diffusely which is suggestive of Parkinson's. Appreciate neurology consultation and follow-up regarding holding his Sinemet due to intolerance of symptoms especially with agitation at nighttime. Neurology is planning on reevaluating him today and considering restarting Sinemet at the lowest dose possible. Rest of the assessment and plan as per resident documentation from today's progress note <Mendez Ruby G - Last Filed: 06/29/18 09:46> (1) BPH (benign prostatic hyperplasia) Qualifiers: Lower urinary tract symptom detail: urinary frequency Qualified Code(s): N40.1 - Benign prostatic hyperplasia with lower urinary tract symptoms; R35.0 - Frequency of micturition (2) Constipation Qualifiers: Constipation type: unspecified constipation type Qualified Code(s): K59.00 - Constipation, unspecified
--- NOTE | 2018-06-28 11:46 | Event Note ---
Date of Encounter: 06/28/18 Time of Encounter: 11:43 I have performed a face- to face examination of this patient and participated in formulation of raymundo components of Assessment and plan with the Resident. Events from last night reviewed. Patient had better evening last night after his Sinemet was held by neurology. There was also concern for ST changes on telemetry monitoring. Cardiac enzymes were checked and they were normal although last one was barely elevated at 0.04. Patient has been denying any chest pain or chest pressure-type of symptoms. He is not short of breath. This morning he is much more awake and alert and seen ambulating in the toro with the a walker. He still complains of a lot of pain in the lower back region. His MRI has been reviewed and shows severe L4-L5 degenerative disc disease including central disc protrusion. I have started him on Toradol cautiously keeping his renal function in mind. Physical therapy will continue to see him. We will also consult orthopedics for intervention although I doubt he would be a candidate for surgical intervention at this point. On examination his gait is shuffling, he does have increased muscle tone diffusely which is suggestive of Parkinson's. Appreciate neurology consultation and follow-up regarding holding his Sinemet due to intolerance of symptoms especially with agitation at nighttime. Neurology is planning on reevaluating him today and considering restarting Sinemet at the lowest dose possible. Rest of the assessment and plan as per resident documentation from today's progress note
--- NOTE | 2018-06-28 12:54 | Neurology Progress Note ---
Date of Encounter: 06/28/18 Time of Encounter: 12:52 Assessment and Plan (1) Parkinson's disease Current Visit: Yes Status: Acute I remain convinced that we are dealing with idiopathic Parkinson's disease. As stated previously however the dopaminergic medications are more difficult to tolerate in the elderly. I would therefore restart the Sinemet at one pill once daily. I believe that time for now we should focus on the back pain and get this under control. Once his back pain is improved and I can slowly titrate up on the Sinemet to effective dosing. We would recommend likely have to continue on with the titration as an outpatient after he is discharged. Subjective Interval history: The chart was reviewed, the patient was seen and examined. Patient's is in the room at bedside. Patient is sitting up at the side of the bed in no acute distress. He is back to his normal baseline status. He did not tolerate the 3 times a day dosing of Sinemet well. He still having trouble with excessive back pain. Objective - Constitutional Vitals: Temp Pulse Resp BP Pulse Ox 97.9 F 109 17 152/89 97 06/28/18 10:00 06/28/18 10:00 06/28/18 10:00 06/28/18 10:06/28/18 10:00 - Neurological Exam Additional comments: Exam: General Examination: *CONSTITUTIONAL: normal *GENERAL APPEARANCE OF PATIENT appears healthy and well groomed *EYES: pupils equal, round, reactive to light and accommodation, conjunctiva clear without masses or ulcerations, fundi normal. *CARDIOVASCULAR no peripheral edema, distal temperature normal, dorsalis pedis pulses normal. Refer to vital signs Musculoskeletal: *GAIT AND STATION WERE not assessed. *ASSESSMENT OF MUSCLE STRENGTH IN THE UPPER AND LOWER EXTREMITIES he has significant weakness of all muscles of the left upper and left lower extremity. However he has normal tone of the left upper and left lower extremities. He has normal strength bulk and tone of the right upper and right lower extremities. *MUSCLE TONE IN THE UPPER AND LOWER EXTREMITIES normal. No abnormal movements, fasciculations or atrophy identified. Neurological: *ORIENTATION to time and place *RECURRENT AND REMOTE MEMORY intact *ATTENTION AND CONCENTRATION seem to be somewhat impaired perhaps medication or other substances. *LANGUAGE FUNCTION no significant aphasia or dysarthia was noted. *FUND OF KNOWLEDGE she is not able to give a good history of her prior medical problems. Cannot tell me specifically details about diagnosed with seiz ures and who started her on seizure medication. *MENTAL attention span and concentration normal. *CN II optic fundi were normal, no papilledema noted. *CN III,IV, PERRLA extraocular eye movements were full, no nystagmus and no ptosis noted. *CN V shows normal sensation and jaw opens symmetrically. *CN VII shows normal facial movement symmetrically, upper and lower bilaterally. *CN VIII shows no significant hearing loss on examination in the office. *CN IX,,X palate elevated symmetrically and normal gag reflex was noted. *CN XI normal strength in the sternocleidomastoid muscles, symmetrical shoulder shrugging. *CN XII tongue protruded in the midline, with normal strength and movement. *SENSORY EXAMINATION pinprick sensation intact, and light touch(vibration sense). *REFLEXES: deep tendon reflexes were normal and symmetrical , grade 2/4 diffusely, no pathological reflexes were noted. *CEREBELLAR TESTING normal finger to nose, heel/knee/guerra, and tandem walk. *PAIN LEVEL -he does complain of left shoulder pain. Results - Laboratory Findings CBC and BMP: 06/28/18 03:33 06/28/18 03:33 Abnormal lab findings: Abnormal lab results RBC 3.96 M/mcL (4.19-5.50) L 06/28/18 03:33 Hgb 12.1 g/dL (12.9-16.9) L 06/28/18 03:33 Hct 35.5 % (37.5-50.1) L 06/28/18 03:33 BUN 35 mg/dL (8-23) H 06/28/18 03:33 BUN/Creatinine Ratio 38 (6-26) H 06/28/18 03:33 Consult Discharge Plan - Plan Referrals: Kiki To, WORK CHECKER [Primary Care Provider] - 07/04/18 8:30 am ()
[2018-06-28] MEDS: Carbidopa/Levodopa 25/100 TABLET PO SCH (14:26)
--- NOTE | 2018-06-28 21:39 | Spinal Consult Note ---
Date of Encounter: 06/28/18 Time of Encounter: 21:37 Assessment and Plan (1) Foraminal stenosis of lumbar region Current Visit: Yes Status: Chronic On exam he is sitting in a chair and appears in moderate distress secondary to back pain. Afebrile vital signs stable. He has a right arm, hand tremor. He is able to fire all lower extremity motor groups. He has no clonus. His hips move symmetrically. MRI of the lumbar spine reveals multilevel degenerative changes. There is moderate foraminal stenosis at L4-5 and L5-S1. Impression:1) foraminal stenosis lumbar region 2) lumbar radiculopathy Plan: The patient does not require surgical intervention. As would suggest he follow-up with interventional pain management on an outpatient basis for consideration of lumbar epidural steroid injections and other interventional pain treatment options. He may also benefit from outpatient physical therapy. He should follow-up with Dr. Burt or Dr. Bauer shortly after discharge. He may benefit from inpatient rehabilitation depending on findings of physical therapy consultation. There are no contraindications to his mobilization. (2) Lumbar radiculopathy Current Visit: Yes Status: Chronic History of Present Illness Chief complaint: Back pain, generalized weakness HPI: Mr. Marcos is a 78 year old male Who was admitted several days ago with generalized weakness and back pain. The patient has multiple comorbidities including Parkinson's disease. He is a poor historian and his is not present during this examination. He denies new weakness, states he can ambulate. He rates his back pain a 10 on a pain scale. He says he is having some sleeplessness secondary to pain. He says the pain is about 50% related to the back and 50% related to the bilateral lower extremities. He denies bowel bladder symptomatology. He denies fevers or chills. Past Med Surg Social Fam HX - Past Medical History Medical history: non-contributory, cancer Additional medical history: skin cancer, macular degeneration right eye. Psychiatric history: no psych history - Past Surgical History Surgical History: no surgical history - Social History Smoking Status: Never smoker Smokeless Tobacco Status: No Alcohol use: none Drug use: none - Family History Mother Adopted: No Medications and Allergies Naproxen [Naprosyn] 500 mg PO BID 06/25/18 [History] Allergy/AdvReac Type Severity Reaction Status Date / Time No Known Allergies Allergy Verified 06/25/18 09:08 Results - Labs Result Diagrams: 06/28/18 03:33 06/28/18 03:33 Labs: Abnormal lab results RBC 3.96 M/mcL (4.19-5.50) L 06/28/18 03:33 Hgb 12.1 g/dL (12.9-16.9) L 06/28/18 03:33 Hct 35.5 % (37.5-50.1) L 06/28/18 03:33 BUN 35 mg/dL (8-23) H 06/28/18 03:33 BUN/Creatinine Ratio 38 (6-26) H 06/28/18 03:33 H & H 06/28/18 Range/Units 03:33 Hgb 12.1 L (12.9-16.9) g/dL Hct 35.5 L (37.5-50.1) % All other labs normal. Consult Discharge Plan - Plan Referrals: Kiki To CNP [Primary Care Provider] - 07/04/18 8:30 am ()
[2018-06-29] MEDS: Ketorolac 30 MG/ML VIAL IVP SCH (00:57)
[2018-06-29 05:41] LABS: Hematocrit 40.5 % (37.5-50.1); Hemoglobin 13.3 g/dL (12.9-16.9); Mean Corpuscular HGB Conc 32.8 g/dL (31.6-35.5); Mean Corpuscular Hemoglobin 30.3 pg (28.0-33.3); Mean Corpuscular Volume 92.3 fL (83.0-100.0); Mean Platelet Volume 10.5 fL (9.4-12.4); Platelet Count 317 K/mcL (140-400); Red Blood Count 4.39 M/mcL (4.19-5.50); Red Cell Distribution Width 13.2 % (11.5-14.5)
[2018-06-29] MEDS: *HR* Enoxaparin 40 MG/0.4 ML SYRINGE SQ SCH (05:41)
[2018-06-29] MEDS: traMADol 50 MG TABLET PO PRN (05:41)
[2018-06-29 06:05] LABS: BUN/Creatinine Ratio 49 (6-26); Blood Urea Nitrogen 58 mg/dL (8-23); Calcium 10.4 mg/dL (8.6-10.3); Carbon Dioxide 24 mEq/L (23-29); Chloride 98 mEq/L (98-107); Glucose 116 mg/dL (70-105); Osmolality,Calculated 299 (280-300); Potassium 3.5 mEq/L (3.5-5.1); Sodium 136 mEq/L (136-145); eGFR For Non-African Americans 59 (> 60)
[2018-06-29 07:55] VITALS: BP 162/79
--- NOTE | 2018-06-29 09:18 | Electrocardiograph Report ---
[address] [place], [place] [address] Test Date: 2018-06-25 Pat Name: Anastacio Marcos Department: EXAM19 Room: 3B Gender: M Administrative Director: : 1940 Requested By: Kenneth Zuniga Order Number: [id number] Reading MD: Phong Clark Measurements Intervals [place] Rate: 78 P: 41 [place]: 136 QRS: 48 QRSD: 99 T: 61 QT: 398 QTc: 454 Interpretive Statements Sinus rhythm Electronically Signed On 06-29-2018 9:17:24 EST by Phong Clark
--- NOTE | 2018-06-29 09:28 | Internal Med Progress Note ---
<Radhames Quiroga P - Last Filed: 06/29/18 09:23> Hospitalist Progress Note - Encounter Date of Encounter: 06/29/18 - Subjective Interval History: Today is 4th day of admission .He is 78 years old male presented to [facility] for increased weakness,low back pain, shuffling gaits and tremors and falls. According to his he has had symptoms for a few years but has not started any medication. She was admitted for further workup. Today during my bedside visit the patient was sleeping on bed, he was not in acute distress. He has trouble with sleeping last night, he seems restless and try to walk, he complained about low back pain and radiating down both legs, he he got IV tramadol for pain are this morning, so he looks sleepy while I was in his bedside. I talked with sitter/ nurse as well. His vitals are blood pressure 154/88, pulse 107, saturation 97%. Orthopedic consultation was done yesterday. PT and OT evaluation is on board today. - Exam Vitals: Temp Pulse Resp BP Pulse Ox 97.6 F 104 14 162/79 100 06/29/18 07:00 06/29/18 07:00 06/29/18 07:00 06/29/18 07:00 06/29/18 07:00 Exam: General : Patient was sleepy but not in acute distress, oriented x2 - Head Head exam: Present: atraumatic, normocephalic - Eye Eye exam: Present: PERRL, conjuntiva pink, sclera anicteric Pupils: Present: PERRL - Neck Neck exam general surgery: Present: supple, trachea midline. Absent: ly mphadenopathy - Respiratory Respiratory exam: Present: CTAB. Absent: accessory muscle use, rales, rhonchi, wheezes - Cardiovascular Cardiovascular exam: Present: RRR, +S1, +S2. Absent: diastolic murmur, gallop, rubs, systolic murmur - GI/Abdominal GI/Abdominal exam: Present: normal bowel sounds, soft, no peritoneal signs. Absent: distended, tenderness - Extremities Exam Extremities exam: Present: warm, radial pulses palpable and symmetrical. Absent: calf tenderness, cyanotic, pedal edema - Neurological Exam Neurological exam: Present: CN II-XII intact, oriented X2, no focal deficits. Absent: pronater drift, facial droop, speech deficit Additional comments: Lowback : tenderness at lower lumbar spine and paravertebral muscle. Generalized rigidity and whole-body stiffness. Fine resting tremors to bilateral hands noted - Assessment and Plan (1) Parkinson disease Current Visit: Yes Status: Acute Assessment and Plan: The patient has history of resting tremor, rigidity, postural instability. The symptoms are suggestive of Parkinson disease. Neurology team has been consulted. They started carbidopa/levodopa 25/100 twice daily, but patient could not tolerate the higher dose,so gradually increasing the dose from 1 tab OD as per neuro recommendation. The patient is restless and symptoms of packed Parkinson has not yet been control well, is he is not tolerating usual dose of medication, as to start from the low-dose and will take time for improvement. We will monitor the symptoms . (2) Low back pain Current Visit: Yes Status: Acute Assessment and Plan: He has low back pain with radiculopathy. MRI : L spine Multilevel degenerative changes of the lumbar spine, most prominent at L4-5, Ortho spine has been consulted . They recommended epidural steroid injection, pain management, physical therapy . They will follow-up in outpatient . PT and OT on board , pain management continue . (3) Generalized weakness Current Visit: Yes Status: Acute Assessment and Plan: presented with increased generalized weakness with associated rigidity, tremors and shuffling gait and low back pain. Head CT was normal . MRI L- spine:Multilevel degenerative changes of the lumbar spine, most prominent at L4- 5. Ortho-spine consulted the patient and advised epidural steroid injection and physical therapy with pain management. PT /OT consultation is on board. (4) DVT prophylaxis Current Visit: Yes Status: Acute Assessment and Plan: Lovenox 40 SQ for DVT prophylaxis. - Time Spent with Patient Total time spent is greater than 50% in coordination of care (as documented) at patient's floor/unit and/or counseling patient: Internal Medicine: Result - Labs CBC & Chem 7: 06/29/18 04:14 06/29/18 04:14 Labs: Short CBC 06/29/18 Range/Units 04:14 WBC 9.4 (4.3-11.1) K/mcL Hgb 13.3 (12.9-16.9) g/dL Hct 40.5 (37.5-50.1) % Plt Count 317 (140-400) K/mcL BMP 06/29/18 04:14 Sodium 136 Potassium 3.5 Chloride 98 Carbon Dioxide 24 BUN 58 H Creatinine 1.19 Glucose 116 H Calcium 10.4 H Cardiac Enzymes 06/28/18 Range/Units 09:49 Troponin I < 0.03 (< 0.04) ng/mL - Impressions Impressions Lumbar Spine MRI 06/26/18 14:55 IMPRESSION: 1. Multilevel degenerative changes of the lumbar spine, most prominent at L4-5, as detailed above. 2. Grade 1 retrolisthesis of L1 relative to L2. Presumed degenerative endplate edema at L1-L2 on the left. D/ / 06/27/2018 14:48:38 Ethan Xiao MD / [email or web address] Interpreting Provider: Ethan Xiao MD Consult Discharge Plan - Plan Referrals: Kiki To CNP [Primary Care Provider] - 07/04/18 8:30 am () Micky Parker Jr, MD [Partnered Physician] - (An appointment has been requested. The office will contact you at home to schedule an appointment. ) Cody Burt DO [Partnered Physician] - 07/21/18 1:30 pm Rick Chou DO [Partnered Physician] - (An appointment has been requested. The office will contact you at home with an appointment. ) Prescriptions: OxyCODONE Immed Rel [Roxicodone 5 MG] 5 mg PO Q8HR PRN 5 Days #10 tablet PRN Reason: Severe Pain Carbidopa/Levodopa 25/100 [Sinemet 25/100] 1 each PO DAILY #30 tablet Lidocaine Patch [Lidoderm 5% patch] 1 each TP DAILY 5 Days #5 adh..patch Tamsulosin [Flomax] 0.4 mg PO DAILY #30 capsule <Mendez Ruby - Last Filed: 06/29/18 11:45> Hospitalist Progress Note - Encounter Date of Encounter: 06/29/18 Time of Encounter: 11:44 - Exam Vitals: Temp Pulse Resp BP Pulse Ox 97.6 F 104 14 162/79 100 06/29/18 07:00 06/29/18 07:00 06/29/18 07:00 06/29/18 07:00 06/29/18 07:00 - Assessment and Plan (1) BPH (benign prostatic hyperplasia) Current Visit: Yes Status: Acute (2) Constipation Current Visit: Yes Status: Acute (3) Parkinson's disease Current Visit: Yes Status: Acute (4) Back pain Current Visit: Yes Status: Acute - Time Spent with Patient Total time spent is greater than 50% in coordination of care (as documented) at patient's floor/unit and/or counseling patient: Internal Medicine: Result - Labs CBC & Chem 7: 06/29/18 04:14 06/29/18 04:14 Labs: Short CBC 06/29/18 Range/Units 04:14 WBC 9.4 (4.3-11.1) K/mcL Hgb 13.3 (12.9-16.9) g/dL Hct 40.5 (37.5-50.1) % Plt Count 317 (140-400) K/mcL BMP 06/29/18 04:14 Sodium 136 Potassium 3.5 Chloride 98 Carbon Dioxide 24 BUN 58 H Creatinine 1.19 Glucose 116 H Calcium 10.4 H - Attending Attestation A patient seen and examined at the bedside with the resident physician. Please refer to the discharge summary from today patient is being discharged. <Mendez Ruby - Last Filed: 06/29/18 11:45> (1) BPH (benign prostatic hyperplasia) Qualifiers: Lower urinary tract symptom detail: urinary frequency Qualified Code(s): N40.1 - Benign prostatic hyperplasia with lower urinary tract symptoms; R35.0 - Frequency of micturition (2) Constipation Qualifiers: Constipation type: unspecified constipation type Qualified Code(s): K59.00 - Constipation, unspecified
[2018-06-29] MEDS: Carbidopa/Levodopa 25/100 TABLET PO SCH (09:48)
[2018-06-29] MEDS: Nystatin POWDER 30 GM BOTTLE TP SCH (10:01)
--- NOTE | 2018-06-29 10:50 | Discharge Summary ---
<Radhames Quiroga P - Last Filed: 06/29/18 12:27> - NOTES TO OUTPATIENT PROVIDER Notes to Outpatient Provider: .*The patient was follow-up with his primary care provider within a week. *The patient will follow-up with neurologist(DR Richter) within a week. * He will take Sinemet 1 tab daily for now and Dr Richter will adjust the dose after out patient visit. *He will follow-up with Ortho spine doctor within 2-3 weeks. *follow-up with Dr. Burt within a week for pain management for low back pain. Orders not resulted at time of discharge: Pending orders 06/30/18 04:00 BMP [Basic Metabolic Panel] AM 0400 Complete Blood Count w/o Diff [HEME] AM 0400 07/01/18 04:00 BMP [Basic Metabolic Panel] AM 0400 Complete Blood Count w/o Diff [HEME] AM 0400 Date of Encounter: 06/29/18 Time of Encounter: 09:00 - Discharge Diagnosis (1) Parkinson disease Priority: Primary Status: Acute Assessment and Plan: The patient has history of resting tremor, rigidity, postural instability. The symptoms are suggestive of Parkinson disease. Neurology team has been consulted. They started carbidopa/levodopa 25/100 twice daily, but patient could not tolerate the higher dose,so gradually increasing the dose from 1 tab OD as per neuro recommendation. The patient is restless and symptoms of packed Parkinson has not yet been control well, is he is not tolerating usual dose of medication, as to start from the low-dose and will take time for improvement. He will follow-up with neurologist within a week. (2) Low back pain Priority: Primary Status: Chronic Assessment and Plan: presented with increased generalized weakness with associated rigidity, tremors and shuffling gait and low back pain. Head CT was normal . MRI L- spine:Multilevel degenerative changes of the lumbar spine, most prominent at L4- 5. Ortho-spine consulted the patient while she was in inpatient and advised epidural steroid injection and physical therapy with pain management. The patient will follow-up with Dr. Burt for pain management and orthopedic spine doctor for further outpatient evaluation and workup. Qualifiers: Chronicity: chronic Back pain laterality: bilateral Sciatica presence: with sciatica Sciatica laterality: sciatica laterality unspecified Qualified Code(s): M54.40 - Lumbago with sciatica, unspecified side; G89.29 - Other chronic pain (3) Generalized weakness Priority: Primary Status: Chronic (4) DVT prophylaxis Priority: Primary Status: Resolved Hospital course: .He is 78 years old male presented to [facility] ED for increased weakness,low back pain, shuffling gaits and tremors and falls. According to his he has had those symptoms for a few years but has not started any medication. He was admitted for further workup. We consulted Ortho spine doctor , Neurologist while he was in in patient . MRI : L spine showed : Multilevel degenerative changes of the lumbar spine, most prominent at L4-5. CT head and brain : No acute intracranial abnormality. only sequela of chronic small vessel ischemic change. Neurology team started Sinemet at low dose ( 1 tab daily ) and will increase the dose gradually after follow up in out patient . Ortho- spine recommended Epidural steroid for LBP after Out -patient visit and pain management follow-up with Dr. Burt and Physical therapy. OT PT recommended to send him SNF , but his wants to take him to his home and requesting for home health arrangement by his PCP. The patient is gradually improving , His vitals are stable.So we are planning him to send home and he will follow up with Neuro, Ortho spine doctor , Pain management doctor in a week. He has been advised to take Oxycodon and lidocaine patch for pain and Sinemet 1 tab daily. - Time Spent with Patient Total time spent providing and/or coordinating discharge services: - Discharge Medications Prescriptions: RX: OxyCODONE Immed Rel [Roxicodone 5 MG] 5 mg PO Q8HR PRN 5 Days #10 tablet PRN Reason: Severe Pain RX: Carbidopa/Levodopa 25/100 [Sinemet 25/100] 1 each PO DAILY #30 tablet RX: Lidocaine Patch [Lidoderm 5% patch] 1 each TP DAILY 5 Days #5 adh..patch RX: Tamsulosin [Flomax] 0.4 mg PO DAILY #30 capsule Home Medications: RX: Carbidopa/Levodopa 25/100 [Sinemet 25/100] 1 each PO DAILY #30 tablet 06/29/18 [Rx] RX: Lidocaine Patch [Lidoderm 5% patch] 1 each TP DAILY 5 Days #5 adh..patch 06/29/18 [Rx] RX: OxyCODONE Immed Rel [Roxicodone 5 MG] 5 mg PO Q8HR PRN 5 Days #10 tablet [Rx] RX: Polyethylene Glycol 3350 [MiraLAX] 17 gm PO DAILY powd.pack 06/29/18 [Rx] RX: Tamsulosin [Flomax] 0.4 mg PO DAILY #30 capsule 06/29/18 [Rx] Allergies/Adverse Reactions: Allergy/AdvReac Type Severity Reaction Status Date / Time No Known Allergies Allergy Verified 06/25/18 09:08 Date of admission: 06/25/18 10:54 Primary care physician: Kiki To CNP Consults: 06/28/18 11:21 Consult to Orthopedic Surgery [CONS] Routine Consulting Provider: [facility] Reason for Consult: Low back pain Time Notified: 11:29 Call Completed: Yes 06/25/18 10:39 Consult to Neurology [CONS] Stat Consulting Provider: [facility] Reason for Consult: parkinsonian symptoms, generalized weakness Call Completed: Yes 06/25/18 13:57 Consult to Neurology [CONS] Routine Consulting Provider: [facility] Reason for Consult: Increased weakness, rigidity, tremors and shuffling gait Call Completed: Yes 06/25/18 14:24 Consult to Physical Therapy [CONS] Routine Comment: Evaluate, develop and implement POC Reason for Consult: generalized weakness, falls Does patient have active BEDREST order?: No Is patient medically & hemodynamically stable?: Yes OT [Consult to Occupational Therapy] [CONS] Routine Comment: Evaluate, develop and implement POC Reason for Consult: generalized weakness, falls Does patient have active BEDREST order?: No Is patient medically & hemodynamically stable?: Yes 06/27/18 04:12 Consult to Food Counter Worker [CONS] Routine Reason for SW Consult: Possible Placement to ECF - Constitutional Vitals: Temp Pulse Resp BP Pulse Ox 97.6 F 104 14 162/79 100 06/29/18 07:00 06/29/18 07:00 06/29/18 07:00 06/29/18 07:00 06/29/18 07:00 General appearance: Present: A&O X 3, pleasant, no acute distress Exam: General : Patient feels more sleepy due to pain medication but not in acute distress, oriented x3 - Head Head exam: Present: atraumatic, normocephalic - Eye Eye exam: Present: PERRL, conjuntiva pink, sclera anicteric Pupils: Present: PERRL - Neck Neck exam general surgery: Present: supple, trachea midline. Absent: lymphadenopathy - Respiratory Respiratory exam: Present: CTAB. Absent: accessory muscle use, rales, rhonchi, wheezes - Cardiovascular Cardiovascular exam: Present: RRR, +S1, +S2. Absent: diastolic murmur, gallop, rubs, systolic murmur - GI/Abdominal GI/Abdominal exam: Present: normal bowel sounds, soft, no peritoneal signs. Absent: distended, tenderness - Extremities Exam Extremities exam: Present: warm, radial pulses palpable and symmetrical. Absent: calf tenderness, cyanotic, pedal edema - Neurological Exam Neurological exam: Present: CN II-XII intact, oriented X2, no focal deficits. Absent: pronater drift, facial droop, speech deficit Additional comments: Lowback : tenderness at lower lumbar spine and paravertebral muscle. Generalized rigidity and whole-body stiffness. Fine resting tremors to bilateral hands noted - Patient Status Disposition: Home, Self-Care Overall status at discharge: patient is not back to baseline - Discharge Instructions Instructions: Carbidopa/Levodopa (By mouth), Oxycodone/Acetaminophen (By mouth), Tamsulosin (By mouth), Lidocaine Patch (On the skin), Parkinson's Disease (DC) Follow Up With: Kiki To CNP [Primary Care Provider] - 07/04/18 8:30 am () Micky Parker Jr, MD [Partnered Physician] - (An appointment has been requested. The office will contact you at home to schedule an appointment. ) Cody Burt DO [Partnered Physician] - 07/21/18 1:30 pm Rick Chou DO [Partnered Physician] - (An appointment has been requested. The office will contact you at home with an appointment. ) <Mendez Ruby - Last Filed: 06/29/18 13:39> Orders not resulted at time of discharge: Pending orders 06/30/18 04:00 BMP [Basic Metabolic Panel] AM 0400 Complete Blood Count w/o Diff [HEME] AM 0400 07/01/18 04:00 BMP [Basic Metabolic Panel] AM 0400 Complete Blood Count w/o Diff [HEME] AM 0400 Date of Encounter: 06/29/18 - Discharge Diagnosis (1) BPH (benign prostatic hyperplasia) Status: Acute Qualifiers: Lower urinary tract symptom detail: urinary frequency Qualified Code(s): N40.1 - Benign prostatic hyperplasia with lower urinary tract symptoms; R35.0 - Frequency of micturition (2) Constipation Status: Acute Qualifiers: Constipation type: unspecified constipation type Qualified Code(s): K59.00 - Constipation, unspecified (3) Parkinson's disease Status: Acute (4) Back pain Status: Acute Hospital course: Mr. Marcos is a 78 year old male - Time Spent with Patient Total time spent providing and/or coordinating discharge services: Date of admission: 06/25/18 10:54 Primary care physician: Kiki To CNP Consults: 06/28/18 11:21 Consult to Orthopedic Surgery [CONS] Routine Consulting Provider: [facility] Reason for Consult: Low back pain Time Notified: 11:29 Call Completed: Yes 06/25/18 10:39 Consult to Neurology [CONS] Stat Consulting Provider: [facility] Reason for Consult: parkinsonian symptoms, generalized weakness Call Completed: Yes 06/25/18 13:57 Consult to Neurology [CONS] Routine Consulting Provider: [facility] Reason for Consult: Increased weakness, rigidity, tremors and shuffling gait Call Completed: Yes 06/25/18 14:24 Consult to Physical Therapy [CONS] Routine Comment: Evaluate, develop and implement POC Reason for Consult: generalized weakness, falls Does patient have active BEDREST order?: No Is patient medically & hemodynamically stable?: Yes OT [Consult to Occupational Therapy] [CONS] Routine Comment: Evaluate, develop and implement POC Reason for Consult: generalized weakness, falls Does patient have active BEDREST order?: No Is patient medically & hemodynamically stable?: Yes 06/27/18 04:12 Consult to Food Counter Worker [CONS] Routine Reason for SW Consult: Possible Placement to ECF - Constitutional Vitals: Temp Pulse Resp BP Pulse Ox 97.6 F 104 14 162/79 100 06/29/18 07:00 06/29/18 07:00 06/29/18 07:00 06/29/18 07:00 06/29/18 07:00 - Attending Attestation I have performed a face- to face examination of this patient and participated in formulation of raymundo components of Assessment and plan with the Resident. Patient was seen and examined today. He does continue to have some agitation especially in the evening time. This might be medication/Sinemet effect or this could also be owning. His family is agreeable to taking him home because he has been elevated by orthopedic spine and advised nonoperative intervention for now. We will be making appointments for pain management, orthopedics, neurology as an outpatient. As per neurology he is going to be on low-dose Sinemet for now and they will plan on escalating it depending on how he tolerates as an outpatient. We are unable to set up home health care because he has not yet seen a primary care physician. He does have an appointment with his new primary care provider next week and they have been advised to set up home health care upon discharge. Family is agreeable with the plan. He has been given a very small prescription of opiates to be used in conjunction with Tylenol and Motrin for pain control. 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
--- NOTE | 2018-06-29 16:01 | Electrocardiograph Report ---
[place] [address] Test Date: 2018-06-28 Pat Name: Anastacio Marcos Department: 113 Room: 3B Gender: M Senior Mechanical Design Engineer: : 1940 Requested By: Armani White Order Number: [id number] Reading MD: Nicko Mishra Measurements Intervals [place] Rate: 114 P: 44 VA: 161 QRS: 17 QRSD: 85 T: 42 QT: 307 QTc: 375 Interpretive Statements SINUS TACHYCARDIA ABNORMAL RHYTHM ECG Electronically Signed On 06-29-2018 16:00:23 EST by Nicko Mishra
--- NOTE | 2018-06-29 16:18 | Electrocardiograph Report ---
[address] [place], [place] [address] Test Date: 2018-06-27 Pat Name: Anastacio Marcos Department: 113 Room: 3B Gender: M Veterinary Surgery Technician: : 1940 Requested By: Jenny Ruby Order Number: [id number] Reading MD: Nicko Mishra Measurements Intervals [place] Rate: 102 P: 30 ME: 149 QRS: -2 QRSD: 105 T: 25 QT: 339 QTc: 398 Interpretive Statements SINUS TACHYCARDIA ABNORMAL RHYTHM ECG Electronically Signed On 06-29-2018 16:16:15 EST by Nicko Mishra
== END 2018-06-29 13:46 | disposition home or self-care (01) ==
LOC: 3BNU 08:35 → EMEROOARM 08:35 → SUATTDRO 10:54 → 3BNU 12:50
PROVIDERS: ADMIT Internal Medicine; ATTEND Internal Medicine

== ENCOUNTER 2019-07-28 18:42 | Observation (INO) ==
[2019-07-28] MEDS ORDERED: *HR* FentaNYL (PF) 100 MCG/2 ML VIAL IVP ONE (19:21)
[2019-07-28] MEDS ORDERED: Ondansetron 4 MG/2 ML VIAL IVP ONE (19:24)
[2019-07-28 19:28] LABS: Bilirubin,Urine Negative (Negative); Blood,Urine Negative (Negative); Clarity,Urine Clear (Clear); Color,Urine Yellow (Yellow); Glucose,Urine (UA) Normal (Normal); Ketones,Urine Negative (Negative); Leukocyte Esterase,Urine Negative (Negative); Nitrite,Urine Negative (Negative); PH,Urine 5.5 pH Units (5.0-8.0); Protein,Urine Negative (Neg-Trace); Specific Gravity,Urine 1.017 (1.010-1.025); Urobilinogen,Urine Normal (Normal)
[2019-07-28 19:47] LABS: Basophils # 0.1 K/mcL (0.0-0.2); Basophils % 0.8 %; Eosinophils # 0.2 K/mcL (0.0-0.6); Eosinophils % 2.5 %; Immature Granulocytes % 0.9 % (0-4); Lymphocytes # 1.7 K/mcL (0.6-4.6); Lymphocytes % 22.4 %; Mean Corpuscular HGB Conc 34.1 g/dL (31.6-35.5); Mean Corpuscular Hemoglobin 30.8 pg (28.0-33.3); Mean Corpuscular Volume 90.1 fL (83.0-100.0); Mean Platelet Volume 9.6 fL (9.4-12.4); Monocytes # 0.9 K/mcL (0.0-1.3); Monocytes % 11.7 %; Neutrophils # 4.7 K/mcL (1.6-8.9); Platelet Count 266 K/mcL (140-400); Red Blood Count 4.55 M/mcL (4.19-5.50); Red Cell Distribution Width 13.2 % (11.5-14.5); Segmented Neutrophils % 61.7 %; White Blood Count 7.6 K/mcL (4.3-11.1)
[2019-07-28 20:27] LABS: Alanine Aminotransferase 11 Units/L (7-52); Albumin 4.5 g/dL (3.5-5.7); Albumin/Globulin Ratio 1.6 (1.1-2.2); Alkaline Phosphatase 53 Units/L (34-104); Aspartate Amino Transferase 20 Units/L (13-39); BUN/Creatinine Ratio 25 (6-26); Bilirubin,Direct 0.1 mg/dL (0.0-0.2); Bilirubin,Indirect 0.5 mg/dL (0.0-1.0); Bilirubin,Total 0.6 mg/dL (0.3-1.0); Blood Urea Nitrogen 34 mg/dL (8-23); Calcium 9.8 mg/dL (8.6-10.3); Carbon Dioxide 22 mEq/L (23-29); Chloride 103 mEq/L (98-107); Globulin 2.9 g/dL (2.4-3.5); Glucose 110 mg/dL (70-105); Lipase 13 Units/L (11-82); Osmolality,Calculated 296 (280-300); Potassium 4.2 mEq/L (3.5-5.1); Sodium 139 mEq/L (136-145); Total Protein 7.4 g/dL (6.4-8.9); eGFR For African Americans > 60 (> 60); eGFR For Non-African Americans 51 (> 60)
[2019-07-28] MEDS ORDERED: 0.9 % Sodium Chloride 1,000 ML IVC ONE (20:31)
[2019-07-28] MEDS ORDERED: Morphine Sulfate 2 MG/ML SYRINGE IVP ONE (20:31)
[2019-07-28 21:33] LABS: Magnesium 2.1 mg/dL (1.6-2.6)
[2019-07-28] MEDS ORDERED: Naloxone 0.4 MG/ML INJ IVP PRN (22:44)
[2019-07-28] MEDS ORDERED: Acetaminophen 325 MG TABLET PO PRN (22:44)
[2019-07-28] MEDS ORDERED: *HR* Metoprolol 5 MG/5 ML VIAL IVP PRN (23:45)
[2019-07-29] MEDS: 0.9 % Sodium Chloride 1,000 ML IVC SCH ×2 (00:56→13:09)
[2019-07-29 06:11] LABS: Basophils # 0.1 K/mcL (0.0-0.2); Basophils % 0.7 %; Eosinophils # 0.2 K/mcL (0.0-0.6); Eosinophils % 1.6 %; Hematocrit 41.1 % (37.5-50.1); Hemoglobin 14.1 g/dL (12.9-16.9); Immature Granulocytes % 0.7 % (0-4); Lymphocytes # 1.6 K/mcL (0.6-4.6); Lymphocytes % 16.3 %; Mean Corpuscular HGB Conc 34.3 g/dL (31.6-35.5); Mean Corpuscular Hemoglobin 31.3 pg (28.0-33.3); Mean Corpuscular Volume 91.3 fL (83.0-100.0); Mean Platelet Volume 9.6 fL (9.4-12.4); Monocytes # 1.1 K/mcL (0.0-1.3); Monocytes % 11.3 %; Neutrophils # 6.7 K/mcL (1.6-8.9); Platelet Count 267 K/mcL (140-400); Red Cell Distribution Width 13.3 % (11.5-14.5); Segmented Neutrophils % 69.4 %; White Blood Count 9.6 K/mcL (4.3-11.1)
[2019-07-29] MEDS: Gabapentin 100 MG CAPSULE PO SCH ×4 (06:30→19:25)
[2019-07-29] MEDS: *HR* Heparin 5,000 UNIT/ML VIAL SQ SCH ×3 (06:30→19:25)
[2019-07-29 06:31] LABS: Albumin 4.3 g/dL (3.5-5.7); Albumin/Globulin Ratio 1.5 (1.1-2.2); Bilirubin,Total 0.9 mg/dL (0.3-1.0); Calcium 9.3 mg/dL (8.6-10.3); Globulin 2.8 g/dL (2.4-3.5); Magnesium 2.1 mg/dL (1.6-2.6); Potassium 4.2 mEq/L (3.5-5.1); Total Protein 7.1 g/dL (6.4-8.9)
[2019-07-29] MEDS: Melatonin 3 MG TABLET PO SCH (07:39)
[2019-07-29] MEDS: Ondansetron 4 MG/2 ML VIAL IVP PRN (07:43)
[2019-07-29] MEDS ORDERED: Sennosides 8.6 MG TABLET PO SCH (09:00)
[2019-07-29] MEDS: Sennosides/Docusate Sodium TABLET PO SCH ×2 (15:03→19:24)
[2019-07-29] MEDS: *HR* Labetalol 20 MG/4 ML SYRINGE IVP PRN (15:03)
[2019-07-29 15:04] LABS: C-Reactive Protein < 5 mg/L (Less than 10); Uric Acid 7.2 mg/dL (2.3-7.6)
[2019-07-29] MEDS ORDERED: QUEtiapine Fumarate 25 MG TABLET PO SCH (21:00)
[2019-07-30] MEDS: *HR* Heparin 5,000 UNIT/ML VIAL SQ SCH (05:21)
[2019-07-30] MEDS: *HR* Labetalol 20 MG/4 ML SYRINGE IVP PRN (06:37)
[2019-07-30] MEDS: Ondansetron 4 MG/2 ML VIAL IVP PRN (07:10)
[2019-07-30] MEDS: Melatonin 3 MG TABLET PO SCH (07:12)
[2019-07-30] MEDS: Gabapentin 100 MG CAPSULE PO SCH (07:13)
[2019-07-30] MEDS: Sennosides/Docusate Sodium TABLET PO SCH (07:13)
[2019-07-30 07:55] LABS: Basophils # 0.1 K/mcL (0.0-0.2); Basophils % 0.6 %; Eosinophils # 0.2 K/mcL (0.0-0.6); Eosinophils % 2.5 %; Hematocrit 38.9 % (37.5-50.1); Hemoglobin 13.1 g/dL (12.9-16.9); Immature Granulocytes % 0.8 % (0-4); Lymphocytes # 1.4 K/mcL (0.6-4.6); Lymphocytes % 18.1 %; Mean Corpuscular HGB Conc 33.7 g/dL (31.6-35.5); Mean Corpuscular Hemoglobin 30.7 pg (28.0-33.3); Mean Corpuscular Volume 91.1 fL (83.0-100.0); Mean Platelet Volume 10.1 fL (9.4-12.4); Monocytes % 12.2 %; Neutrophils # 5.2 K/mcL (1.6-8.9); Platelet Count 245 K/mcL (140-400); Red Blood Count 4.27 M/mcL (4.19-5.50); Red Cell Distribution Width 13.4 % (11.5-14.5); Segmented Neutrophils % 65.8 %
[2019-07-30 08:14] LABS: Alanine Aminotransferase 18 Units/L (7-52); Albumin/Globulin Ratio 1.4 (1.1-2.2); Alkaline Phosphatase 46 Units/L (34-104); Aspartate Amino Transferase 69 Units/L (13-39); BUN/Creatinine Ratio 23 (6-26); Bilirubin,Direct 0.3 mg/dL (0.0-0.2); Bilirubin,Indirect 0.9 mg/dL (0.0-1.0); Bilirubin,Total 1.2 mg/dL (0.3-1.0); Blood Urea Nitrogen 29 mg/dL (8-23); Calcium 9.1 mg/dL (8.6-10.3); Carbon Dioxide 20 mEq/L (23-29); Chloride 105 mEq/L (98-107); Globulin 2.8 g/dL (2.4-3.5); Glucose 77 mg/dL (70-105); Magnesium 2.1 mg/dL (1.6-2.6); Osmolality,Calculated 297 (280-300); Potassium 3.8 mEq/L (3.5-5.1); Sodium 141 mEq/L (136-145); Total Protein 6.8 g/dL (6.4-8.9); eGFR For African Americans > 60 (> 60); eGFR For Non-African Americans 56 (> 60)
[2019-07-30] MEDS ORDERED: amLODIPine 5 MG TABLET PO SCH (09:00)
[2019-07-30 10:23] VITALS: BP 166/76
== END 2019-07-30 12:35 | disposition home or self-care (01) ==
LOC: 3ANU 18:42 → EMEROOARM 18:42 → SUATTDRO 22:28 → 3ANU 22:59
PROVIDERS: ADMIT Student in an Organized Health Care Education/Training Program; ATTEND Pharmacist

== ENCOUNTER 2020-02-05 07:35 | Inpatient (IN) ==
[2020-02-05 08:23] LABS: Hematocrit 37.2 % (37.5-50.1); Hemoglobin 12.7 g/dL (12.9-16.9); Mean Corpuscular HGB Conc 34.1 g/dL (31.6-35.5); Mean Corpuscular Hemoglobin 29.8 pg (28.0-33.3); Mean Corpuscular Volume 87.3 fL (83.0-100.0); Mean Platelet Volume 9.3 fL (9.4-12.4); Platelet Count 381 K/mcL (140-400); Red Blood Count 4.26 M/mcL (4.19-5.50); Red Cell Distribution Width 14.9 % (11.5-14.5); White Blood Count 14.1 K/mcL (4.3-11.1)
[2020-02-05 08:45] LABS: Albumin 3.3 g/dL (3.5-5.7); Albumin/Globulin Ratio 0.8 (1.1-2.2); Bilirubin,Total 1.3 mg/dL (0.3-1.0); Calcium 9.3 mg/dL (8.6-10.3); Globulin 3.9 g/dL (2.4-3.5); Lymphocytes # 1.4 K/mcL (0.6-4.6); Monocytes # 0.9 K/mcL (0.0-1.3); Neutrophils # 11.3 K/mcL (1.6-8.9); Platelet Estimate Normal (Normal); Potassium 4.3 mEq/L (3.5-5.1); Total Protein 7.2 g/dL (6.4-8.9); Troponin I 0.03 ng/mL (< 0.04)
[2020-02-05 08:45] LABS: Bacteria,Urine Few per hpf (None-Few); Bilirubin,Urine Negative (Negative); Blood,Urine Trace (Negative); Clarity,Urine Clear (Clear); Color,Urine Yellow (Yellow); Glucose,Urine (UA) Normal (Normal); Hyaline Casts,Urine Moderate per lpf (None Seen); Ketones,Urine Negative (Negative); Leukocyte Esterase,Urine Negative (Negative); Mucus,Urine Few per lpf (None-Few); Nitrite,Urine Negative (Negative); PH,Urine 5.5 pH Units (5.0-8.0); Protein,Urine 30 mg/dL (Neg-Trace); RBC,Urine 0-3 per hpf (0-3); Specific Gravity,Urine 1.015 (1.010-1.025); Squamous Epithelial Cell,Urine Few per hpf (None-Few); Urobilinogen,Urine Normal (Normal); WBC,Urine 0-3 per hpf (0-3)
[2020-02-05] MEDS ORDERED: 0.9 % Sodium Chloride 500 ML IVC ONE (09:02)
[2020-02-05] MEDS ORDERED: Ondansetron 4 MG/2 ML VIAL IVP PRN (09:10)
[2020-02-05 10:08] LABS: Sodium, Urine 29.4 mEq/L
[2020-02-05] MEDS: 0.9 % Sodium Chloride 1,000 ML IVC SCH (14:24)
[2020-02-05] MEDS ORDERED: NON-FORMULARY MEDICATION 1 EACH EACH (Linaclotide [Linzess] 290 MCG) PO SCH (16:15)
[2020-02-05] MEDS: tiZANidine 4 MG TABLET PO SCH ×2 (17:01→20:24)
[2020-02-05] MEDS: *HR* Heparin 5,000 UNIT/ML VIAL SQ SCH (17:26)
[2020-02-05] MEDS: Gabapentin 100 MG CAPSULE PO SCH (20:17)
[2020-02-05] MEDS: traZODone 50 MG TABLET PO SCH (20:17)
[2020-02-06] MEDS ORDERED: *HR* LORazepam 2 MG/ML VIAL IVP ONE (03:12)
[2020-02-06] MEDS: 0.9 % Sodium Chloride 1,000 ML IVC SCH (03:41)
[2020-02-06] MEDS: *HR* Heparin 5,000 UNIT/ML VIAL SQ SCH ×2 (05:51→17:17)
[2020-02-06 06:43] LABS: Hematocrit 38.3 % (37.5-50.1); Hemoglobin 12.5 g/dL (12.9-16.9); Mean Corpuscular HGB Conc 32.6 g/dL (31.6-35.5); Mean Corpuscular Hemoglobin 28.9 pg (28.0-33.3); Mean Corpuscular Volume 88.5 fL (83.0-100.0); Mean Platelet Volume 9.3 fL (9.4-12.4); Platelet Count 414 K/mcL (140-400); Red Blood Count 4.33 M/mcL (4.19-5.50); White Blood Count 14.4 K/mcL (4.3-11.1)
[2020-02-06 07:02] LABS: BUN/Creatinine Ratio 23 (6-26); Blood Urea Nitrogen 31 mg/dL (8-23); Calcium 9.3 mg/dL (8.6-10.3); Carbon Dioxide 22 mEq/L (23-29); Chloride 101 mEq/L (98-107); Glucose 112 mg/dL (70-105); Osmolality,Calculated 281 (280-300); Potassium 4.6 mEq/L (3.5-5.1); Sodium 132 mEq/L (136-145); eGFR For African Americans > 60 (> 60); eGFR For Non-African Americans 51 (> 60)
[2020-02-06 07:19] LABS: Eosinophils # 0.3 K/mcL (0.0-0.6); Large Platelets Present (Not Present); Monocytes # 1.7 K/mcL (0.0-1.3); Neutrophils # 10.1 K/mcL (1.6-8.9); Platelet Estimate Normal (Normal)
[2020-02-06] MEDS ORDERED: *HR* Dextrose 50 % in Water (Vial) 50 ML VIAL IVP PRN (08:07)
[2020-02-06] MEDS ORDERED: Dextrose Gel 15 GM/37.5 ML TUBE PO PRN ×2 (08:07)
[2020-02-06] MEDS ORDERED: D5% in Water 1,000 ML IVC PRN (08:07)
[2020-02-06 08:27] LABS: Alanine Aminotransferase 54 Units/L (7-52); Albumin 3.2 g/dL (3.5-5.7); Albumin/Globulin Ratio 0.8 (1.1-2.2); Alkaline Phosphatase 189 Units/L (34-104); Aspartate Amino Transferase 46 Units/L (13-39); Bilirubin,Direct 0.8 mg/dL (0.0-0.2); Bilirubin,Indirect 0.9 mg/dL (0.0-1.0); Bilirubin,Total 1.7 mg/dL (0.3-1.0); Globulin 3.8 g/dL (2.4-3.5)
[2020-02-06 08:40] LABS: INR 1.3; Prothrombin Time 14.7 Seconds (9.4-12.1)
[2020-02-06] MEDS: Gabapentin 100 MG CAPSULE PO SCH ×3 (08:45→21:14)
[2020-02-06] MEDS: Piperacillin/Tazobactam 3.375 GM in 0.9 % Sodium Chloride Mini Bag 100 ML IVPB SCH ×2 (08:45→16:19)
[2020-02-06] MEDS: Nystatin Cream 15 GM TUBE TP SCH (08:46)
[2020-02-06] MEDS: Insulin LISPRO 300 UNITS/3 ML VIAL SQ SCH ×2 (11:45→17:18)
[2020-02-06] MEDS ORDERED: *HR* Labetalol 20 MG/4 ML SYRINGE IVP PRN (12:11)
[2020-02-06] MEDS ORDERED: *HR* HYDROmorphone (PF) 1 MG/ML SYRINGE IVP PRN (12:11)
[2020-02-06] MEDS ORDERED: Ondansetron 4 MG/2 ML VIAL IVP PRN (12:11)
[2020-02-06] MEDS ORDERED: *HR* Propofol 200 MG/20 ML VIAL IVP ONE (13:17)
[2020-02-06] MEDS ORDERED: Ondansetron 4 MG/2 ML VIAL IVP ONE (13:17)
[2020-02-06] MEDS ORDERED: Lidocaine -MPF 2% 5 ML VIAL SQ ONE (13:17)
[2020-02-06] MEDS ORDERED: *HR* Succinylcholine 200 MG/10 ML VIAL IVP ONE (13:17)
[2020-02-06] MEDS: traZODone 50 MG TABLET PO SCH (21:13)
[2020-02-06] MEDS: tiZANidine 4 MG TABLET PO SCH (21:14)
[2020-02-07] MEDS: Piperacillin/Tazobactam 3.375 GM in 0.9 % Sodium Chloride Mini Bag 100 ML IVPB SCH (00:13)
[2020-02-07] MEDS: Insulin LISPRO 300 UNITS/3 ML VIAL SQ SCH ×4 (00:23→17:57)
[2020-02-07] MEDS ORDERED: *HR* LORazepam 2 MG/ML VIAL IVP ONE ×2 (00:31→01:56)
[2020-02-07] MEDS: *HR* Heparin 5,000 UNIT/ML VIAL SQ SCH ×2 (05:28→18:13)
[2020-02-07 08:19] LABS: Hematocrit 35.7 % (37.5-50.1); Hemoglobin 12.2 g/dL (12.9-16.9); Mean Corpuscular HGB Conc 34.2 g/dL (31.6-35.5); Mean Corpuscular Volume 87.9 fL (83.0-100.0); Mean Platelet Volume 9.5 fL (9.4-12.4); Platelet Count 387 K/mcL (140-400); Red Blood Count 4.06 M/mcL (4.19-5.50); Red Cell Distribution Width 15.3 % (11.5-14.5); White Blood Count 13.2 K/mcL (4.3-11.1)
[2020-02-07 08:43] LABS: Alanine Aminotransferase 101 Units/L (7-52); Albumin/Globulin Ratio 0.9 (1.1-2.2); Alkaline Phosphatase 318 Units/L (34-104); Aspartate Amino Transferase 157 Units/L (13-39); BUN/Creatinine Ratio 25 (6-26); Bilirubin,Total 4.3 mg/dL (0.3-1.0); Blood Urea Nitrogen 31 mg/dL (8-23); Carbon Dioxide 22 mEq/L (23-29); Chloride 105 mEq/L (98-107); Globulin 3.3 g/dL (2.4-3.5); Glucose 112 mg/dL (70-105); Magnesium 2.1 mg/dL (1.6-2.6); Osmolality,Calculated 287 (280-300); Phosphorous 3.1 mg/dL (2.7-4.5); Potassium 4.6 mEq/L (3.5-5.1); Sodium 135 mEq/L (136-145); Total Protein 6.3 g/dL (6.4-8.9); eGFR For African Americans > 60 (> 60); eGFR For Non-African Americans 56 (> 60)
[2020-02-07 09:12] LABS: Lipase 11 Units/L (11-82)
[2020-02-07 09:47] LABS: Lymphocytes # 1.3 K/mcL (0.6-4.6); Monocytes # 0.8 K/mcL (0.0-1.3); Neutrophils # 10.4 K/mcL (1.6-8.9)
[2020-02-07 09:48] LABS: Anisocytosis 1+ (Not Present); Platelet Estimate Normal (Normal); Target Cells 1+ (Not Present)
[2020-02-07] MEDS: metroNIDAZOLE 500 MG TABLET PO SCH ×3 (09:54→21:34)
[2020-02-07] MEDS: Gabapentin 100 MG CAPSULE PO SCH ×3 (09:54→21:34)
[2020-02-07] MEDS: Nystatin Cream 15 GM TUBE TP SCH (09:55)
[2020-02-07] MEDS ORDERED: QUEtiapine Fumarate 25 MG TABLET PO PRN (15:43)
[2020-02-07 17:40] LABS: Folate 12.4 ng/mL (3.0-16.0)
[2020-02-07] MEDS: tiZANidine 4 MG TABLET PO SCH (21:34)
[2020-02-07] MEDS: traZODone 50 MG TABLET PO SCH (21:34)
[2020-02-07] MEDS ORDERED: Haloperidol Lactate 5 MG/ML VIAL IVP ONE ×2 (22:04→23:50)
[2020-02-08] MEDS ORDERED: *HR* LORazepam 2 MG/ML VIAL IVP ONE ×5 (00:20→23:12)
[2020-02-08] MEDS ORDERED: Haloperidol Lactate 5 MG/ML VIAL IVP ONE (03:57)
[2020-02-08 05:24] LABS: Hematocrit 37.9 % (37.5-50.1); Hemoglobin 12.7 g/dL (12.9-16.9); Mean Corpuscular HGB Conc 33.5 g/dL (31.6-35.5); Mean Corpuscular Hemoglobin 29.4 pg (28.0-33.3); Mean Corpuscular Volume 87.7 fL (83.0-100.0); Mean Platelet Volume 9.2 fL (9.4-12.4); Platelet Count 473 K/mcL (140-400); Red Blood Count 4.32 M/mcL (4.19-5.50); Red Cell Distribution Width 14.8 % (11.5-14.5); White Blood Count 12.5 K/mcL (4.3-11.1)
[2020-02-08] MEDS: *HR* Heparin 5,000 UNIT/ML VIAL SQ SCH ×2 (05:35→17:02)
[2020-02-08 05:44] LABS: BUN/Creatinine Ratio 27 (6-26); Blood Urea Nitrogen 35 mg/dL (8-23); Carbon Dioxide 25 mEq/L (23-29); Chloride 102 mEq/L (98-107); Glucose 114 mg/dL (70-105); Osmolality,Calculated 291 (280-300); Potassium 4.8 mEq/L (3.5-5.1); Sodium 136 mEq/L (136-145); eGFR For African Americans > 60 (> 60); eGFR For Non-African Americans 53 (> 60)
[2020-02-08 08:15] LABS: Alanine Aminotransferase 113 Units/L (7-52); Albumin 3.1 g/dL (3.5-5.7); Albumin/Globulin Ratio 0.8 (1.1-2.2); Alkaline Phosphatase 315 Units/L (34-104); Aspartate Amino Transferase 125 Units/L (13-39); Bilirubin,Direct 1.4 mg/dL (0.0-0.2); Bilirubin,Indirect 1.2 mg/dL (0.0-1.0); Bilirubin,Total 2.6 mg/dL (0.3-1.0); Globulin 3.8 g/dL (2.4-3.5); Total Protein 6.9 g/dL (6.4-8.9)
[2020-02-08] MEDS: metroNIDAZOLE 500 MG TABLET PO SCH ×3 (08:22→20:45)
[2020-02-08] MEDS: Gabapentin 100 MG CAPSULE PO SCH ×3 (08:23→20:45)
[2020-02-08] MEDS: Nystatin Cream 15 GM TUBE TP SCH (08:23)
[2020-02-08] MEDS: Insulin LISPRO 300 UNITS/3 ML VIAL SQ SCH ×3 (08:34→17:14)
[2020-02-08] MEDS ORDERED: QUEtiapine Fumarate 25 MG TABLET PO SCH ×2 (18:30→21:00)
[2020-02-08] MEDS ORDERED: QUEtiapine Fumarate 25 MG TABLET PO PRN (18:40)
[2020-02-08] MEDS: traZODone 50 MG TABLET PO SCH (20:45)
[2020-02-09 07:13] LABS: Hematocrit 35.1 % (37.5-50.1); Mean Corpuscular HGB Conc 34.2 g/dL (31.6-35.5); Mean Corpuscular Hemoglobin 29.6 pg (28.0-33.3); Mean Corpuscular Volume 86.7 fL (83.0-100.0); Mean Platelet Volume 9.3 fL (9.4-12.4); Platelet Count 457 K/mcL (140-400); Red Blood Count 4.05 M/mcL (4.19-5.50); White Blood Count 12.6 K/mcL (4.3-11.1)
[2020-02-09 07:33] LABS: BUN/Creatinine Ratio 25 (6-26); Blood Urea Nitrogen 32 mg/dL (8-23); Calcium 8.9 mg/dL (8.6-10.3); Carbon Dioxide 24 mEq/L (23-29); Chloride 101 mEq/L (98-107); Glucose 98 mg/dL (70-105); Osmolality,Calculated 285 (280-300); Potassium 4.1 mEq/L (3.5-5.1); Sodium 134 mEq/L (136-145); eGFR For African Americans > 60 (> 60); eGFR For Non-African Americans 54 (> 60)
[2020-02-09] MEDS: Insulin LISPRO 300 UNITS/3 ML VIAL SQ SCH ×4 (09:20→16:49)
[2020-02-09] MEDS: *HR* Heparin 5,000 UNIT/ML VIAL SQ SCH ×2 (09:20→16:51)
[2020-02-09] MEDS: Gabapentin 100 MG CAPSULE PO SCH ×3 (10:23→19:51)
[2020-02-09] MEDS: QUEtiapine Fumarate 25 MG TABLET PO SCH ×2 (10:23→18:04)
[2020-02-09] MEDS: metroNIDAZOLE 500 MG TABLET PO SCH ×3 (10:23→19:42)
[2020-02-09] MEDS: Nystatin Cream 15 GM TUBE TP SCH (11:14)
[2020-02-09 15:43] LABS: Alanine Aminotransferase 77 Units/L (7-52); Albumin/Globulin Ratio 0.9 (1.1-2.2); Alkaline Phosphatase 231 Units/L (34-104); Aspartate Amino Transferase 64 Units/L (13-39); Bilirubin,Direct 0.8 mg/dL (0.0-0.2); Bilirubin,Total 1.8 mg/dL (0.3-1.0); Globulin 3.5 g/dL (2.4-3.5); Total Protein 6.5 g/dL (6.4-8.9)
[2020-02-09] MEDS ORDERED: Gabapentin 100 MG CAPSULE PO ONE (18:40)
[2020-02-09] MEDS: traZODone 50 MG TABLET PO SCH (19:42)
[2020-02-09] MEDS: Sennosides 8.6 MG TABLET PO SCH (19:42)
[2020-02-09] MEDS: *HR* LORazepam 1 MG TABLET PO PRN (19:43)
[2020-02-10] MEDS: Insulin LISPRO 300 UNITS/3 ML VIAL SQ SCH ×5 (00:35→20:49)
[2020-02-10] MEDS: *HR* Heparin 5,000 UNIT/ML VIAL SQ SCH ×2 (06:22→16:33)
[2020-02-10] MEDS: Gabapentin 100 MG CAPSULE PO SCH ×3 (07:10→20:48)
[2020-02-10] MEDS: *HR* LORazepam 1 MG TABLET PO PRN (07:36)
[2020-02-10] MEDS: QUEtiapine Fumarate 25 MG TABLET PO SCH ×2 (07:37→20:40)
[2020-02-10] MEDS: metroNIDAZOLE 500 MG TABLET PO SCH ×3 (07:37→20:48)
[2020-02-10] MEDS: Sennosides 8.6 MG TABLET PO SCH ×2 (07:38→20:39)
[2020-02-10 10:06] LABS: Basophils # 0.3 K/mcL (0.0-0.2); Hematocrit 36.5 % (37.5-50.1); Hemoglobin 12.1 g/dL (12.9-16.9); Mean Corpuscular HGB Conc 33.2 g/dL (31.6-35.5); Mean Corpuscular Hemoglobin 28.8 pg (28.0-33.3); Mean Corpuscular Volume 86.9 fL (83.0-100.0); Mean Platelet Volume 9.6 fL (9.4-12.4); Platelet Count 454 K/mcL (140-400); Red Cell Distribution Width 15.2 % (11.5-14.5); White Blood Count 15.3 K/mcL (4.3-11.1)
[2020-02-10 10:23] LABS: Alanine Aminotransferase 53 Units/L (7-52); Albumin 2.9 g/dL (3.5-5.7); Albumin/Globulin Ratio 0.8 (1.1-2.2); Alkaline Phosphatase 184 Units/L (34-104); Aspartate Amino Transferase 52 Units/L (13-39); BUN/Creatinine Ratio 27 (6-26); Bilirubin,Total 1.4 mg/dL (0.3-1.0); Blood Urea Nitrogen 29 mg/dL (8-23); Calcium 8.8 mg/dL (8.6-10.3); Carbon Dioxide 22 mEq/L (23-29); Chloride 103 mEq/L (98-107); Globulin 3.5 g/dL (2.4-3.5); Glucose 110 mg/dL (70-105); Osmolality,Calculated 282 (280-300); Potassium 4.2 mEq/L (3.5-5.1); Sodium 133 mEq/L (136-145); Total Protein 6.4 g/dL (6.4-8.9); eGFR For African Americans > 60 (> 60); eGFR For Non-African Americans > 60 (> 60)
[2020-02-10] MEDS ORDERED: *HR* OxyCODONE Immed Rel 5 MG TABLET PO PRN (10:23)
[2020-02-10] MEDS: Nystatin Cream 15 GM TUBE TP SCH (10:35)
[2020-02-10 10:43] LABS: Chol/HDL Ratio 5.2 (0-4.9); Cholesterol 131 mg/dL (< 200); HDL Cholesterol 25 mg/dL (40-59); LDL Cholesterol,Calculated 91 mg/dL (< 100); Triglycerides 77 mg/dL (< 150)
[2020-02-10 11:01] LABS: Lymphocytes # 1.5 K/mcL (0.6-4.6); Monocytes # 1.2 K/mcL (0.0-1.3); Neutrophils # 12.2 K/mcL (1.6-8.9)
[2020-02-10 11:02] LABS: Platelet Estimate Normal (Normal)
[2020-02-10] MEDS ORDERED: *HR* OxyCODONE Immed Rel 5 MG TABLET PO ONE (13:56)
[2020-02-10] MEDS ORDERED: Gadolinium Contrast Agent (WT Based) IV PRN (16:26)
[2020-02-10] MEDS: *HR* OxyCODONE Immed Rel 5 MG TABLET PO PRN (16:39)
[2020-02-10] MEDS ORDERED: Isovue-370 500 ML BOTTLE IVP ONE (19:38)
[2020-02-10] MEDS ORDERED: *HR* HYDROmorphone 2 MG TABLET PO ONE (20:18)
[2020-02-10] MEDS: cefTRIAXone 2,000 MG in Water for inj. (sterile) 20 ML IVP SCH (20:33)
[2020-02-10] MEDS: traZODone 50 MG TABLET PO SCH (20:40)
[2020-02-11] MEDS: *HR* OxyCODONE Immed Rel 5 MG TABLET PO PRN ×2 (00:15→09:22)
[2020-02-11 01:23] LABS: Hematocrit 36.2 % (37.5-50.1); Hemoglobin 11.6 g/dL (12.9-16.9); Mean Corpuscular Hemoglobin 28.6 pg (28.0-33.3); Mean Corpuscular Volume 89.2 fL (83.0-100.0); Mean Platelet Volume 9.8 fL (9.4-12.4); Platelet Count 469 K/mcL (140-400); Red Blood Count 4.06 M/mcL (4.19-5.50); Red Cell Distribution Width 15.5 % (11.5-14.5)
[2020-02-11 01:43] LABS: Alanine Aminotransferase 46 Units/L (7-52); Albumin 2.8 g/dL (3.5-5.7); Albumin/Globulin Ratio 0.8 (1.1-2.2); Alkaline Phosphatase 165 Units/L (34-104); Aspartate Amino Transferase 44 Units/L (13-39); BUN/Creatinine Ratio 25 (6-26); Bilirubin,Total 1.1 mg/dL (0.3-1.0); Blood Urea Nitrogen 29 mg/dL (8-23); Calcium 8.6 mg/dL (8.6-10.3); Carbon Dioxide 23 mEq/L (23-29); Chloride 102 mEq/L (98-107); Globulin 3.4 g/dL (2.4-3.5); Glucose 109 mg/dL (70-105); Osmolality,Calculated 284 (280-300); Potassium 4.7 mEq/L (3.5-5.1); Sodium 134 mEq/L (136-145); Total Protein 6.2 g/dL (6.4-8.9); eGFR For African Americans > 60 (> 60); eGFR For Non-African Americans > 60 (> 60)
[2020-02-11 02:25] LABS: Lymphocytes # 2.7 K/mcL (0.6-4.6); Monocytes # 0.6 K/mcL (0.0-1.3); Neutrophils # 11.4 K/mcL (1.6-8.9)
[2020-02-11] MEDS ORDERED: *HR* LORazepam 2 MG/ML VIAL IVP ONE ×3 (04:07→18:24)
[2020-02-11] MEDS: *HR* Heparin 5,000 UNIT/ML VIAL SQ SCH ×2 (05:18→17:37)
[2020-02-11] MEDS: QUEtiapine Fumarate 25 MG TABLET PO SCH ×4 (06:21→22:25)
[2020-02-11] MEDS: metroNIDAZOLE 500 MG TABLET PO SCH ×3 (09:02→19:45)
[2020-02-11] MEDS: Sennosides 8.6 MG TABLET PO SCH ×2 (09:02→19:46)
[2020-02-11] MEDS: Gabapentin 100 MG CAPSULE PO SCH ×3 (09:03→19:46)
[2020-02-11] MEDS: Nystatin Cream 15 GM TUBE TP SCH (10:20)
[2020-02-11] MEDS: Insulin LISPRO 300 UNITS/3 ML VIAL SQ SCH ×4 (10:20→22:06)
[2020-02-11] MEDS: *HR* LORazepam 1 MG TABLET PO PRN (12:41)
[2020-02-11] MEDS ORDERED: *HR* OxyCODONE Immed Rel 5 MG TABLET PO ONE (13:07)
[2020-02-11] MEDS: *HR* LORazepam 1 MG TABLET PO SCH ×2 (15:17→16:21)
[2020-02-11] MEDS: traZODone 50 MG TABLET PO SCH (19:30)
[2020-02-11] MEDS: cefTRIAXone 2,000 MG in Water for inj. (sterile) 20 ML IVP SCH (19:34)
[2020-02-12] MEDS ORDERED: *HR* LORazepam 2 MG/ML VIAL IVP ONE ×3 (00:38→07:44)
[2020-02-12 01:43] LABS: Hematocrit 39.2 % (37.5-50.1); Hemoglobin 12.7 g/dL (12.9-16.9); Mean Corpuscular HGB Conc 32.4 g/dL (31.6-35.5); Mean Corpuscular Hemoglobin 28.9 pg (28.0-33.3); Mean Corpuscular Volume 89.1 fL (83.0-100.0); Mean Platelet Volume 9.3 fL (9.4-12.4); Platelet Count 498 K/mcL (140-400); Red Cell Distribution Width 15.5 % (11.5-14.5); White Blood Count 13.8 K/mcL (4.3-11.1)
[2020-02-12 01:48] LABS: INR 1.4; Prothrombin Time 16.4 Seconds (9.4-12.1)
[2020-02-12 02:02] LABS: Alanine Aminotransferase 37 Units/L (7-52); Albumin 3.1 g/dL (3.5-5.7); Albumin/Globulin Ratio 0.9 (1.1-2.2); Alkaline Phosphatase 158 Units/L (34-104); Aspartate Amino Transferase 32 Units/L (13-39); BUN/Creatinine Ratio 31 (6-26); Bilirubin,Total 1.2 mg/dL (0.3-1.0); Blood Urea Nitrogen 34 mg/dL (8-23); Carbon Dioxide 25 mEq/L (23-29); Chloride 100 mEq/L (98-107); Globulin 3.6 g/dL (2.4-3.5); Glucose 102 mg/dL (70-105); Osmolality,Calculated 288 (280-300); Potassium 4.5 mEq/L (3.5-5.1); Sodium 135 mEq/L (136-145); Total Protein 6.7 g/dL (6.4-8.9); eGFR For African Americans > 60 (> 60); eGFR For Non-African Americans > 60 (> 60)
[2020-02-12 02:05] LABS: Lymphocytes # 1.9 K/mcL (0.6-4.6); Monocytes # 1.4 K/mcL (0.0-1.3); Neutrophils # 9.9 K/mcL (1.6-8.9); Platelet Estimate Normal (Normal)
[2020-02-12] MEDS: *HR* LORazepam 2 MG/ML VIAL IVP PRN ×3 (02:14→23:42)
[2020-02-12] MEDS: *HR* Heparin 5,000 UNIT/ML VIAL SQ SCH ×2 (06:31→18:57)
[2020-02-12] MEDS: Insulin LISPRO 300 UNITS/3 ML VIAL SQ SCH ×4 (07:34→22:09)
[2020-02-12] MEDS ORDERED: *HR* HYDROmorphone (PF) 1 MG/ML SYRINGE IVP ONE (07:49)
[2020-02-12] MEDS: Gabapentin 100 MG CAPSULE PO SCH ×3 (08:13→22:09)
[2020-02-12] MEDS: metroNIDAZOLE 500 MG TABLET PO SCH ×3 (08:13→22:09)
[2020-02-12] MEDS: QUEtiapine Fumarate 25 MG TABLET PO SCH ×2 (08:13→18:58)
[2020-02-12] MEDS: Nystatin Cream 15 GM TUBE TP SCH (08:14)
[2020-02-12] MEDS: Sennosides 8.6 MG TABLET PO SCH ×2 (08:24→22:09)
[2020-02-12] MEDS ORDERED: *HR* Midazolam HCl 2 MG/2 ML VIAL IVP ONE (08:43)
[2020-02-12] MEDS ORDERED: *HR* FentaNYL (PF) 100 MCG/2 ML VIAL IVP ONE (08:43)
[2020-02-12] MEDS ORDERED: 0.9 % Sodium Chloride 500 ML ONE (08:49)
[2020-02-12] MEDS: *HR* OxyCODONE Immed Rel 5 MG TABLET PO PRN (15:28)
[2020-02-12] MEDS: cefTRIAXone 2,000 MG in Water for inj. (sterile) 20 ML IVP SCH (22:08)
[2020-02-12] MEDS: traZODone 50 MG TABLET PO SCH (22:09)
[2020-02-13] MEDS: *HR* Heparin 5,000 UNIT/ML VIAL SQ SCH ×2 (04:12→17:11)
[2020-02-13] MEDS: metroNIDAZOLE 500 MG TABLET PO SCH ×5 (08:24→20:10)
[2020-02-13] MEDS: Sennosides 8.6 MG TABLET PO SCH ×3 (08:24→20:10)
[2020-02-13] MEDS: Nystatin Cream 15 GM TUBE TP SCH (08:25)
[2020-02-13] MEDS: Insulin LISPRO 300 UNITS/3 ML VIAL SQ SCH ×4 (08:25→23:47)
[2020-02-13] MEDS: QUEtiapine Fumarate 25 MG TABLET PO SCH ×3 (08:25→20:10)
[2020-02-13] MEDS: Gabapentin 100 MG CAPSULE PO SCH ×5 (08:25→20:10)
[2020-02-13 08:42] LABS: Hematocrit 38.5 % (37.5-50.1); Hemoglobin 12.5 g/dL (12.9-16.9); Mean Corpuscular HGB Conc 32.5 g/dL (31.6-35.5); Mean Corpuscular Hemoglobin 29.1 pg (28.0-33.3); Mean Corpuscular Volume 89.5 fL (83.0-100.0); Mean Platelet Volume 9.7 fL (9.4-12.4); Platelet Count 472 K/mcL (140-400); Red Cell Distribution Width 15.8 % (11.5-14.5); White Blood Count 11.8 K/mcL (4.3-11.1)
[2020-02-13 08:46] LABS: Albumin 3.2 g/dL (3.5-5.7); Albumin/Globulin Ratio 0.8 (1.1-2.2); Bilirubin,Total 1.1 mg/dL (0.3-1.0); Calcium 9.4 mg/dL (8.6-10.3); Globulin 4.1 g/dL (2.4-3.5); Potassium 4.7 mEq/L (3.5-5.1); Total Protein 7.3 g/dL (6.4-8.9)
[2020-02-13] MEDS ORDERED: 0.9 % Sodium Chloride 1,000 ML IVC ONE (09:11)
[2020-02-13 09:59] LABS: Lymphocytes # 2.1 K/mcL (0.6-4.6); Monocytes # 2.4 K/mcL (0.0-1.3); Neutrophils # 7.3 K/mcL (1.6-8.9)
[2020-02-13 10:00] LABS: Poikilocytosis 1+ (Not Present); Reactive Lymphocytes Present (Not Present)
[2020-02-13] MEDS: *HR* LORazepam 2 MG/ML VIAL IVP PRN ×2 (10:17→19:00)
[2020-02-13] MEDS: 0.9 % Sodium Chloride 1,000 ML IVC SCH ×2 (11:42→23:03)
[2020-02-13] MEDS: hydrOXYzine pamoate 25 MG CAPSULE PO PRN ×2 (13:38→20:09)
[2020-02-13] MEDS: *HR* OxyCODONE Immed Rel 5 MG TABLET PO PRN ×2 (13:39→23:47)
[2020-02-13] MEDS ORDERED: Lactulose Oral Soln 20 GM/30 ML UDC PO PRN (13:55)
[2020-02-13] MEDS: polyethylene glycoL 3350 17 GM POWD.PACK PO SCH (18:59)
[2020-02-13] MEDS: cefTRIAXone 2,000 MG in Water for inj. (sterile) 20 ML IVP SCH (20:09)
[2020-02-13] MEDS: traZODone 50 MG TABLET PO SCH (20:10)
[2020-02-14] MEDS: *HR* Heparin 5,000 UNIT/ML VIAL SQ SCH ×2 (04:23→18:07)
[2020-02-14] MEDS: *HR* LORazepam 2 MG/ML VIAL IVP PRN ×2 (04:24→18:05)
[2020-02-14] MEDS: polyethylene glycoL 3350 17 GM POWD.PACK PO SCH (08:01)
[2020-02-14] MEDS: Nystatin Cream 15 GM TUBE TP SCH (08:02)
[2020-02-14] MEDS: hydrOXYzine pamoate 25 MG CAPSULE PO PRN ×2 (08:03→16:21)
[2020-02-14] MEDS: *HR* OxyCODONE Immed Rel 5 MG TABLET PO PRN ×3 (08:05→22:26)
[2020-02-14] MEDS: Gabapentin 100 MG CAPSULE PO SCH ×4 (08:06→21:43)
[2020-02-14] MEDS: metroNIDAZOLE 500 MG TABLET PO SCH ×4 (08:08→21:43)
[2020-02-14] MEDS: QUEtiapine Fumarate 25 MG TABLET PO SCH (08:08)
[2020-02-14] MEDS: Sennosides 8.6 MG TABLET PO SCH (08:10)
[2020-02-14] MEDS: Insulin LISPRO 300 UNITS/3 ML VIAL SQ SCH ×4 (08:19→22:20)
[2020-02-14 08:33] LABS: Basophils # 0.2 K/mcL (0.0-0.2); Hematocrit 37.4 % (37.5-50.1); Mean Corpuscular HGB Conc 32.1 g/dL (31.6-35.5); Mean Corpuscular Hemoglobin 28.6 pg (28.0-33.3); Mean Platelet Volume 9.9 fL (9.4-12.4); Platelet Count 415 K/mcL (140-400); Red Cell Distribution Width 15.8 % (11.5-14.5); White Blood Count 8.5 K/mcL (4.3-11.1)
[2020-02-14 08:56] LABS: Alanine Aminotransferase 20 Units/L (7-52); Albumin/Globulin Ratio 0.8 (1.1-2.2); Alkaline Phosphatase 111 Units/L (34-104); Aspartate Amino Transferase 25 Units/L (13-39); BUN/Creatinine Ratio 39 (6-26); Bilirubin,Total 0.9 mg/dL (0.3-1.0); Blood Urea Nitrogen 34 mg/dL (8-23); Calcium 8.6 mg/dL (8.6-10.3); Carbon Dioxide 20 mEq/L (23-29); Chloride 109 mEq/L (98-107); Globulin 3.7 g/dL (2.4-3.5); Glucose 102 mg/dL (70-105); Osmolality,Calculated 292 (280-300); Potassium 4.6 mEq/L (3.5-5.1); Sodium 137 mEq/L (136-145); Total Protein 6.7 g/dL (6.4-8.9); eGFR For African Americans > 60 (> 60); eGFR For Non-African Americans > 60 (> 60)
[2020-02-14 12:06] LABS: Monocytes # 0.9 K/mcL (0.0-1.3); Neutrophils # 4.8 K/mcL (1.6-8.9); Reactive Lymphocytes Present (Not Present)
[2020-02-14] MEDS ORDERED: LINZESS 290 MCG PO SCH (12:15)
[2020-02-14] MEDS: cefTRIAXone 2,000 MG in Water for inj. (sterile) 20 ML IVP SCH (21:40)
[2020-02-14] MEDS: traZODone 50 MG TABLET PO SCH (21:42)
[2020-02-14] MEDS: OLANZapine 5 MG TAB.RAPDIS PO SCH (21:43)
[2020-02-15] MEDS: hydrOXYzine pamoate 25 MG CAPSULE PO PRN ×3 (00:22→23:43)
[2020-02-15] MEDS: *HR* LORazepam 2 MG/ML VIAL IVP PRN ×3 (02:29→20:52)
[2020-02-15] MEDS: *HR* OxyCODONE Immed Rel 5 MG TABLET PO PRN ×4 (04:55→23:43)
[2020-02-15] MEDS: *HR* Heparin 5,000 UNIT/ML VIAL SQ SCH ×2 (04:56→17:42)
[2020-02-15] MEDS: metroNIDAZOLE 500 MG TABLET PO SCH ×3 (08:22→20:51)
[2020-02-15] MEDS: Gabapentin 100 MG CAPSULE PO SCH ×3 (08:22→20:51)
[2020-02-15] MEDS: LINZESS 290 MCG PO SCH (08:23)
[2020-02-15] MEDS: Insulin LISPRO 300 UNITS/3 ML VIAL SQ SCH ×4 (08:25→21:05)
[2020-02-15] MEDS: Nystatin Cream 15 GM TUBE TP SCH (08:26)
[2020-02-15 09:07] LABS: Basophils # 0.1 K/mcL (0.0-0.2); Basophils % 1.7 %; Eosinophils # 0.3 K/mcL (0.0-0.6); Eosinophils % 3.8 %; Hematocrit 39.6 % (37.5-50.1); Hemoglobin 12.7 g/dL (12.9-16.9); Immature Granulocytes % 4.7 % (0-4); Lymphocytes # 1.4 K/mcL (0.6-4.6); Mean Corpuscular HGB Conc 32.1 g/dL (31.6-35.5); Mean Corpuscular Hemoglobin 28.7 pg (28.0-33.3); Mean Corpuscular Volume 89.4 fL (83.0-100.0); Mean Platelet Volume 9.4 fL (9.4-12.4); Monocytes # 1.1 K/mcL (0.0-1.3); Monocytes % 12.6 %; Neutrophils # 5.2 K/mcL (1.6-8.9); Platelet Count 422 K/mcL (140-400); Red Blood Count 4.43 M/mcL (4.19-5.50); Red Cell Distribution Width 15.8 % (11.5-14.5); Segmented Neutrophils % 61.2 %; White Blood Count 8.5 K/mcL (4.3-11.1)
[2020-02-15 09:20] LABS: Alanine Aminotransferase 18 Units/L (7-52); Albumin 3.2 g/dL (3.5-5.7); Albumin/Globulin Ratio 0.8 (1.1-2.2); Alkaline Phosphatase 110 Units/L (34-104); Aspartate Amino Transferase 22 Units/L (13-39); BUN/Creatinine Ratio 25 (6-26); Bilirubin,Total 0.9 mg/dL (0.3-1.0); Blood Urea Nitrogen 23 mg/dL (8-23); Calcium 9.2 mg/dL (8.6-10.3); Carbon Dioxide 25 mEq/L (23-29); Chloride 106 mEq/L (98-107); Globulin 3.9 g/dL (2.4-3.5); Glucose 107 mg/dL (70-105); Osmolality,Calculated 290 (280-300); Potassium 4.3 mEq/L (3.5-5.1); Sodium 138 mEq/L (136-145); Total Protein 7.1 g/dL (6.4-8.9); eGFR For African Americans > 60 (> 60); eGFR For Non-African Americans > 60 (> 60)
[2020-02-15] MEDS ORDERED: Isovue-370 500 ML BOTTLE IVP ONE (14:14)
[2020-02-15] MEDS: traZODone 50 MG TABLET PO SCH (20:51)
[2020-02-15] MEDS: OLANZapine 5 MG TAB.RAPDIS PO SCH (20:51)
[2020-02-15] MEDS: cefTRIAXone 2,000 MG in Water for inj. (sterile) 20 ML IVP SCH (20:53)
[2020-02-16] MEDS: *HR* OxyCODONE Immed Rel 5 MG TABLET PO PRN ×2 (05:44→21:08)
[2020-02-16] MEDS: *HR* LORazepam 2 MG/ML VIAL IVP PRN ×2 (07:19→23:24)
[2020-02-16] MEDS: Insulin LISPRO 300 UNITS/3 ML VIAL SQ SCH ×4 (07:59→20:37)
[2020-02-16] MEDS: *HR* Heparin 5,000 UNIT/ML VIAL SQ SCH ×2 (08:21→17:14)
[2020-02-16] MEDS: metroNIDAZOLE 500 MG TABLET PO SCH ×3 (08:23→19:59)
[2020-02-16] MEDS: Gabapentin 100 MG CAPSULE PO SCH ×3 (08:23→20:00)
[2020-02-16] MEDS: Nystatin Cream 15 GM TUBE TP SCH (08:23)
[2020-02-16 09:37] LABS: Hematocrit 37.1 % (37.5-50.1); Hemoglobin 12.1 g/dL (12.9-16.9); Mean Corpuscular HGB Conc 32.6 g/dL (31.6-35.5); Mean Corpuscular Hemoglobin 29.7 pg (28.0-33.3); Mean Corpuscular Volume 90.9 fL (83.0-100.0); Mean Platelet Volume 9.8 fL (9.4-12.4); Platelet Count 431 K/mcL (140-400); Red Blood Count 4.08 M/mcL (4.19-5.50); Red Cell Distribution Width 15.9 % (11.5-14.5); White Blood Count 7.6 K/mcL (4.3-11.1)
[2020-02-16 09:43] LABS: Alanine Aminotransferase 14 Units/L (7-52); Albumin 3.1 g/dL (3.5-5.7); Albumin/Globulin Ratio 0.9 (1.1-2.2); Alkaline Phosphatase 94 Units/L (34-104); Aspartate Amino Transferase 21 Units/L (13-39); BUN/Creatinine Ratio 22 (6-26); Bilirubin,Total 0.8 mg/dL (0.3-1.0); Blood Urea Nitrogen 19 mg/dL (8-23); Carbon Dioxide 23 mEq/L (23-29); Chloride 107 mEq/L (98-107); Globulin 3.5 g/dL (2.4-3.5); Glucose 107 mg/dL (70-105); Osmolality,Calculated 287 (280-300); Potassium 4.3 mEq/L (3.5-5.1); Sodium 137 mEq/L (136-145); Total Protein 6.6 g/dL (6.4-8.9); eGFR For African Americans > 60 (> 60); eGFR For Non-African Americans > 60 (> 60)
[2020-02-16 10:13] LABS: Eosinophils # 0.5 K/mcL (0.0-0.6); Lymphocytes # 0.8 K/mcL (0.6-4.6); Monocytes # 0.8 K/mcL (0.0-1.3); Neutrophils # 5.2 K/mcL (1.6-8.9); Platelet Estimate Increased (Normal)
[2020-02-16] MEDS: OLANZapine 5 MG TAB.RAPDIS PO SCH ×2 (14:52→19:59)
[2020-02-16] MEDS: traZODone 50 MG TABLET PO SCH (19:59)
[2020-02-16] MEDS: cefTRIAXone 2,000 MG in Water for inj. (sterile) 20 ML IVP SCH (20:00)
[2020-02-16] MEDS: hydrOXYzine pamoate 25 MG CAPSULE PO PRN (21:08)
[2020-02-17 04:33] LABS: Basophils # 0.1 K/mcL (0.0-0.2); Basophils % 1.4 %; Eosinophils # 0.3 K/mcL (0.0-0.6); Eosinophils % 3.7 %; Hematocrit 37.6 % (37.5-50.1); Hemoglobin 12.3 g/dL (12.9-16.9); Immature Granulocytes % 4.9 % (0-4); Lymphocytes # 1.8 K/mcL (0.6-4.6); Lymphocytes % 19.8 %; Mean Corpuscular HGB Conc 32.7 g/dL (31.6-35.5); Mean Corpuscular Hemoglobin 29.6 pg (28.0-33.3); Mean Corpuscular Volume 90.4 fL (83.0-100.0); Mean Platelet Volume 9.5 fL (9.4-12.4); Monocytes # 1.1 K/mcL (0.0-1.3); Monocytes % 12.7 %; Neutrophils # 5.1 K/mcL (1.6-8.9); Platelet Count 449 K/mcL (140-400); Red Blood Count 4.16 M/mcL (4.19-5.50); Red Cell Distribution Width 15.9 % (11.5-14.5); Segmented Neutrophils % 57.5 %; White Blood Count 8.8 K/mcL (4.3-11.1)
[2020-02-17 04:49] LABS: BUN/Creatinine Ratio 19 (6-26); Blood Urea Nitrogen 18 mg/dL (8-23); Calcium 9.4 mg/dL (8.6-10.3); Carbon Dioxide 22 mEq/L (23-29); Chloride 106 mEq/L (98-107); Glucose 107 mg/dL (70-105); Osmolality,Calculated 288 (280-300); Potassium 4.3 mEq/L (3.5-5.1); Sodium 138 mEq/L (136-145); eGFR For African Americans > 60 (> 60); eGFR For Non-African Americans > 60 (> 60)
[2020-02-17] MEDS: *HR* Heparin 5,000 UNIT/ML VIAL SQ SCH ×2 (04:54→18:09)
[2020-02-17] MEDS: *HR* OxyCODONE Immed Rel 5 MG TABLET PO PRN ×3 (04:55→21:18)
[2020-02-17] MEDS: hydrOXYzine pamoate 25 MG CAPSULE PO PRN (04:55)
[2020-02-17] MEDS: Insulin LISPRO 300 UNITS/3 ML VIAL SQ SCH ×4 (07:59→21:21)
[2020-02-17] MEDS: Gabapentin 100 MG CAPSULE PO SCH ×3 (08:52→21:19)
[2020-02-17] MEDS: metroNIDAZOLE 500 MG TABLET PO SCH ×3 (08:53→21:19)
[2020-02-17] MEDS: OLANZapine 5 MG TAB.RAPDIS PO SCH ×2 (08:53→21:19)
[2020-02-17] MEDS: LINZESS 290 MCG PO SCH (08:54)
[2020-02-17] MEDS: Nystatin Cream 15 GM TUBE TP SCH (10:00)
[2020-02-17] MEDS: *HR* LORazepam 2 MG/ML VIAL IVP PRN (21:19)
[2020-02-17] MEDS: cefTRIAXone 2,000 MG in Water for inj. (sterile) 20 ML IVP SCH (21:19)
[2020-02-17] MEDS: traZODone 50 MG TABLET PO SCH (21:19)
[2020-02-18] MEDS ORDERED: Acetaminophen IV 1,000 MG/100 ML INFUS..BTL IVPB ONE (00:44)
[2020-02-18] MEDS ORDERED: *HR* LORazepam 2 MG/ML VIAL IVP ONE ×2 (00:44→03:57)
[2020-02-18] MEDS: *HR* OxyCODONE Immed Rel 5 MG TABLET PO PRN ×2 (04:03→20:02)
[2020-02-18] MEDS: *HR* Heparin 5,000 UNIT/ML VIAL SQ SCH ×2 (06:10→17:15)
[2020-02-18] MEDS: Insulin LISPRO 300 UNITS/3 ML VIAL SQ SCH ×4 (07:47→19:58)
[2020-02-18] MEDS: Gabapentin 100 MG CAPSULE PO SCH ×3 (07:56→19:59)
[2020-02-18] MEDS: OLANZapine 5 MG TAB.RAPDIS PO SCH ×2 (07:56→20:00)
[2020-02-18] MEDS: metroNIDAZOLE 500 MG TABLET PO SCH ×3 (07:56→20:00)
[2020-02-18] MEDS: Nystatin Cream 15 GM TUBE TP SCH (07:57)
[2020-02-18 09:37] LABS: Basophils # 0.1 K/mcL (0.0-0.2); Basophils % 1.8 %; Eosinophils # 0.4 K/mcL (0.0-0.6); Eosinophils % 5.1 %; Hematocrit 37.9 % (37.5-50.1); Hemoglobin 12.3 g/dL (12.9-16.9); Immature Granulocytes % 4.9 % (0-4); Lymphocytes # 1.9 K/mcL (0.6-4.6); Lymphocytes % 23.1 %; Mean Corpuscular HGB Conc 32.5 g/dL (31.6-35.5); Mean Corpuscular Hemoglobin 29.6 pg (28.0-33.3); Mean Corpuscular Volume 91.1 fL (83.0-100.0); Mean Platelet Volume 10.2 fL (9.4-12.4); Monocytes # 1.1 K/mcL (0.0-1.3); Monocytes % 14.3 %; Neutrophils # 4.1 K/mcL (1.6-8.9); Platelet Count 405 K/mcL (140-400); Red Blood Count 4.16 M/mcL (4.19-5.50); Red Cell Distribution Width 16.1 % (11.5-14.5); Segmented Neutrophils % 50.8 %
[2020-02-18 10:14] LABS: BUN/Creatinine Ratio 20 (6-26); Blood Urea Nitrogen 19 mg/dL (8-23); Carbon Dioxide 23 mEq/L (23-29); Chloride 106 mEq/L (98-107); Glucose 97 mg/dL (70-105); Osmolality,Calculated 290 (280-300); Potassium 4.7 mEq/L (3.5-5.1); Sodium 139 mEq/L (136-145); eGFR For African Americans > 60 (> 60); eGFR For Non-African Americans > 60 (> 60)
[2020-02-18] MEDS: *HR* LORazepam 2 MG/ML VIAL IVP PRN ×2 (11:30→18:27)
[2020-02-18] MEDS: traZODone 50 MG TABLET PO SCH (19:59)
[2020-02-18] MEDS: cefTRIAXone 2,000 MG in Water for inj. (sterile) 20 ML IVP SCH (20:00)
[2020-02-19] MEDS: *HR* LORazepam 2 MG/ML VIAL IVP PRN ×4 (01:20→23:38)
[2020-02-19 05:01] LABS: Basophils # 0.2 K/mcL (0.0-0.2); Basophils % 2.1 %; Eosinophils # 0.3 K/mcL (0.0-0.6); Eosinophils % 4.5 %; Hematocrit 40.4 % (37.5-50.1); Hemoglobin 12.6 g/dL (12.9-16.9); Immature Granulocytes % 4.1 % (0-4); Lymphocytes # 1.4 K/mcL (0.6-4.6); Lymphocytes % 19.3 %; Mean Corpuscular HGB Conc 31.2 g/dL (31.6-35.5); Mean Corpuscular Hemoglobin 28.3 pg (28.0-33.3); Mean Corpuscular Volume 90.6 fL (83.0-100.0); Mean Platelet Volume 10.1 fL (9.4-12.4); Monocytes # 0.9 K/mcL (0.0-1.3); Monocytes % 12.1 %; Neutrophils # 4.1 K/mcL (1.6-8.9); Platelet Count 412 K/mcL (140-400); Red Blood Count 4.46 M/mcL (4.19-5.50); Red Cell Distribution Width 16.4 % (11.5-14.5); Segmented Neutrophils % 57.9 %; White Blood Count 7.1 K/mcL (4.3-11.1)
[2020-02-19 05:13] LABS: BUN/Creatinine Ratio 20 (6-26); Blood Urea Nitrogen 18 mg/dL (8-23); Calcium 9.1 mg/dL (8.6-10.3); Carbon Dioxide 24 mEq/L (23-29); Chloride 104 mEq/L (98-107); Glucose 93 mg/dL (70-105); Osmolality,Calculated 290 (280-300); Potassium 4.2 mEq/L (3.5-5.1); Sodium 139 mEq/L (136-145); eGFR For African Americans > 60 (> 60); eGFR For Non-African Americans > 60 (> 60)
[2020-02-19] MEDS: *HR* Heparin 5,000 UNIT/ML VIAL SQ SCH ×2 (06:09→17:06)
[2020-02-19] MEDS: Insulin LISPRO 300 UNITS/3 ML VIAL SQ SCH ×4 (08:43→21:00)
[2020-02-19] MEDS: Gabapentin 100 MG CAPSULE PO SCH ×3 (08:45→20:41)
[2020-02-19] MEDS: metroNIDAZOLE 500 MG TABLET PO SCH ×3 (08:45→20:41)
[2020-02-19] MEDS: Nystatin Cream 15 GM TUBE TP SCH (08:46)
[2020-02-19] MEDS: LINZESS 290 MCG PO SCH (08:47)
[2020-02-19] MEDS: OLANZapine 5 MG TAB.RAPDIS PO SCH ×2 (08:48→20:42)
[2020-02-19] MEDS: Melatonin 3 MG TABLET PO SCH (20:40)
[2020-02-19] MEDS: traZODone 50 MG TABLET PO SCH (20:41)
[2020-02-19] MEDS: *HR* OxyCODONE Immed Rel 5 MG TABLET PO PRN (20:41)
[2020-02-19] MEDS: *HR* LORazepam 0.5 MG TABLET PO SCH (20:41)
[2020-02-19] MEDS: cefTRIAXone 2,000 MG in Water for inj. (sterile) 20 ML IVP SCH (20:42)
[2020-02-20] MEDS: *HR* OxyCODONE Immed Rel 5 MG TABLET PO PRN ×2 (02:53→15:13)
[2020-02-20] MEDS ORDERED: *HR* LORazepam 2 MG/ML VIAL IM STA (04:45)
[2020-02-20] MEDS: *HR* Heparin 5,000 UNIT/ML VIAL SQ SCH ×2 (05:59→18:18)
[2020-02-20] MEDS: Insulin LISPRO 300 UNITS/3 ML VIAL SQ SCH ×4 (08:28→21:33)
[2020-02-20] MEDS: OLANZapine 5 MG TAB.RAPDIS PO SCH ×2 (08:34→21:50)
[2020-02-20] MEDS: *HR* LORazepam 0.5 MG TABLET PO SCH (08:35)
[2020-02-20] MEDS: Gabapentin 100 MG CAPSULE PO SCH ×3 (08:35→21:50)
[2020-02-20] MEDS: metroNIDAZOLE 500 MG TABLET PO SCH ×3 (08:35→21:50)
[2020-02-20] MEDS: Nystatin Cream 15 GM TUBE TP SCH (08:42)
[2020-02-20] MEDS ORDERED: Haloperidol Lactate 5 MG/ML VIAL IM ONE (12:46)
[2020-02-20] MEDS: Haloperidol Lactate 5 MG/ML VIAL IVP PRN (17:16)
[2020-02-20] MEDS ORDERED: Ziprasidone 10 MG in Water for inj. (sterile) 0.5 ML IM ONE (18:48)
[2020-02-20] MEDS ORDERED: *HR* LORazepam 0.5 MG TABLET PO SCH (21:00)
[2020-02-20] MEDS: cefTRIAXone 2,000 MG in Water for inj. (sterile) 20 ML IVP SCH (21:49)
[2020-02-20] MEDS: traZODone 50 MG TABLET PO SCH (21:50)
[2020-02-20] MEDS: Melatonin 3 MG TABLET PO SCH (21:50)
[2020-02-21] MEDS: Haloperidol Lactate 5 MG/ML VIAL IVP PRN ×2 (01:37→07:49)
[2020-02-21] MEDS ORDERED: *HR* LORazepam 2 MG/ML VIAL IVP ONE (04:38)
[2020-02-21] MEDS: *HR* Heparin 5,000 UNIT/ML VIAL SQ SCH ×2 (04:53→18:03)
[2020-02-21] MEDS: Insulin LISPRO 300 UNITS/3 ML VIAL SQ SCH ×4 (07:33→21:23)
[2020-02-21] MEDS: Gabapentin 100 MG CAPSULE PO SCH ×3 (07:50→20:00)
[2020-02-21] MEDS: OLANZapine 5 MG TAB.RAPDIS PO SCH ×2 (07:51→20:02)
[2020-02-21] MEDS: metroNIDAZOLE 500 MG TABLET PO SCH ×3 (07:51→20:00)
[2020-02-21] MEDS: LINZESS 290 MCG PO SCH (07:52)
[2020-02-21] MEDS: Nystatin Cream 15 GM TUBE TP SCH (07:54)
[2020-02-21] MEDS: Melatonin 3 MG TABLET PO SCH (20:00)
[2020-02-21] MEDS: traZODone 50 MG TABLET PO SCH (20:00)
[2020-02-21] MEDS: *HR* OxyCODONE Immed Rel 5 MG TABLET PO PRN (20:01)
[2020-02-21] MEDS: cefTRIAXone 2,000 MG in Water for inj. (sterile) 20 ML IVP SCH (20:02)
[2020-02-22] MEDS: Haloperidol Lactate 5 MG/ML VIAL IVP PRN (05:22)
[2020-02-22] MEDS: *HR* Heparin 5,000 UNIT/ML VIAL SQ SCH ×2 (05:23→22:23)
[2020-02-22] MEDS: Insulin LISPRO 300 UNITS/3 ML VIAL SQ SCH ×4 (08:31→22:43)
[2020-02-22] MEDS: OLANZapine 5 MG TAB.RAPDIS PO SCH ×2 (08:34→22:40)
[2020-02-22] MEDS: Gabapentin 100 MG CAPSULE PO SCH ×3 (08:34→22:42)
[2020-02-22] MEDS: metroNIDAZOLE 500 MG TABLET PO SCH ×3 (08:34→22:42)
[2020-02-22] MEDS: Nystatin Cream 15 GM TUBE TP SCH (08:36)
[2020-02-22] MEDS: traZODone 50 MG TABLET PO SCH (22:41)
[2020-02-22] MEDS: Melatonin 3 MG TABLET PO SCH (22:41)
[2020-02-22] MEDS: cefTRIAXone 2,000 MG in Water for inj. (sterile) 20 ML IVP SCH (22:42)
[2020-02-23] MEDS: *HR* Heparin 5,000 UNIT/ML VIAL SQ SCH (05:32)
[2020-02-23 06:36] LABS: Basophils # 0.1 K/mcL (0.0-0.2); Basophils % 1.5 %; Eosinophils # 0.3 K/mcL (0.0-0.6); Eosinophils % 3.9 %; Hematocrit 38.8 % (37.5-50.1); Hemoglobin 12.6 g/dL (12.9-16.9); Immature Granulocytes % 2.6 % (0-4); Lymphocytes # 1.7 K/mcL (0.6-4.6); Lymphocytes % 23.4 %; Mean Corpuscular HGB Conc 32.5 g/dL (31.6-35.5); Mean Corpuscular Hemoglobin 29.4 pg (28.0-33.3); Mean Corpuscular Volume 90.7 fL (83.0-100.0); Mean Platelet Volume 9.4 fL (9.4-12.4); Monocytes % 14.1 %; Neutrophils # 3.9 K/mcL (1.6-8.9); Platelet Count 433 K/mcL (140-400); Red Blood Count 4.28 M/mcL (4.19-5.50); Red Cell Distribution Width 16.8 % (11.5-14.5); Segmented Neutrophils % 54.5 %; White Blood Count 7.2 K/mcL (4.3-11.1)
[2020-02-23 06:56] LABS: BUN/Creatinine Ratio 22 (6-26); Blood Urea Nitrogen 22 mg/dL (8-23); Calcium 9.4 mg/dL (8.6-10.3); Carbon Dioxide 25 mEq/L (23-29); Chloride 105 mEq/L (98-107); Glucose 111 mg/dL (70-105); Osmolality,Calculated 288 (280-300); Potassium 4.1 mEq/L (3.5-5.1); Sodium 137 mEq/L (136-145); eGFR For African Americans > 60 (> 60); eGFR For Non-African Americans > 60 (> 60)
[2020-02-23] MEDS ORDERED: cefTRIAXone 2,000 MG in Water for inj. (sterile) 20 ML IVP SCH (08:00)
[2020-02-23] MEDS: Gabapentin 100 MG CAPSULE PO SCH (08:07)
[2020-02-23] MEDS: metroNIDAZOLE 500 MG TABLET PO SCH (08:08)
[2020-02-23] MEDS: OLANZapine 5 MG TAB.RAPDIS PO SCH (08:08)
[2020-02-23] MEDS: LINZESS 290 MCG PO SCH (08:11)
[2020-02-23] MEDS: Nystatin Cream 15 GM TUBE TP SCH (08:11)
[2020-02-23] MEDS: Insulin LISPRO 300 UNITS/3 ML VIAL SQ SCH (08:12)
[2020-02-23 11:33] VITALS: BP 124/79
== END 2020-02-23 12:58 | DRG 871 ==
LOC: EMEROOARM 07:35 → 3ANU 07:35 → SUATTDRO 02-06 15:35
PROVIDERS: ADMIT Internal Medicine; ATTEND Internal Medicine